=== PATIENT | male | born 1950 | race Caucasian/White ===

== ENCOUNTER 2025-02-10 09:01 | Emergency (ER) | payer MEDICARE, BC, SELFPAY ==
--- NOTE | 2025-02-10 09:03 | XR_ITS ---
Examination: Shoulder, right, 3 views Technique: Shoulder AP internal rotation, AP external rotation, Y view shoulder, 3 views Exam date and time : February 10, 2025, 0926 hours INDICATIONS: Patient fell today with injury of the shoulder, shoulder pain. FINDINGS: Moderate narrowing glenohumeral joint No shoulder fracture or dislocation IMPRESSION: No shoulder fracture or dislocation
[2025-02-10 09:11] VITALS: BP 156/84; PULSE 62; RESP 17; TEMP 36.8; O2SAT 95
[2025-02-10 09:12] VITALS: BMI 36.2
--- NOTE | 2025-02-10 09:45 | PD.EDUPEX ---
Upper Extremity Injury RME/HPI General Chief Complaint: Extremity Injury, Upper Stated Complaint: R SHOULDER PAIN Time Seen by Provider: 02/10/25 09:22 Arrival date/time: 02/10/25 09:01 Limitations: no limitations RME / HPI complaint: injury to: right and shoulder Onset (ago): week(s) Other injuries: none Handedness: right Place: home Severity: moderate RME / HPI narrative: 74-year-old male visiting from [facility] was at his house about a week ago and tripped and fell on the carpet. Striking his right shoulder. Initially did not think much of it but now that he is here in [place] cannot move it much. Will be visiting [place] for 1 month. States when he goes back he had plan to visit his Ortho which already had told him he needed some debridement of the same shoulder. Has never had surgery to that shoulder. No other injuries during the fall. States would like imaging just to make sure that nothing is broken. Able to move it but with pain. Related Data Home Medications ?Medication ?Instructions ?Recorded ?Confirmed topiramate 25 mg tablet (Topamax) 25 mg PO BID #0 tabs 07/06/16 03/03/20 escitalopram oxalate 20 mg tablet 20 mg PO HS 11/12/19 03/03/20 (Lexapro) famotidine 40 mg tablet 40 mg PO QDAY 11/12/19 03/03/20 ropinirole 0.5 mg tablet 0.5 mg PO HS 11/12/19 03/03/20 vitamin B complex-vitamin C-folic 1 tab PO QDAY 11/12/19 03/03/20 acid 0.8 mg tablet (Edita-Nora) ergocalciferol (vitamin D2) 1,250 50,000 unit PO QWEEK 11/13/19 03/03/20 mcg (50,000 unit) capsule fluticasone propionate 50 2 spray intranasal QDAY 11/13/19 02/13/21 mcg/actuation nasal spray,suspension Previous Rx's ?Medication ?Instructions ?Recorded hydrocodone 5 mg-acetaminophen 325 1 tab PO BID PRN pain 7 days #14 02/10/25 mg tablet tabs Allergies Allergy/AdvReac Type Severity Reaction Status Date / Time levofloxacin (From Levaquin) Allergy Verified 06/21/23 20:05 Review of Systems Review of Systems Systems Reviewed: All systems reviewed, normal except as documented Constitutional Constitutional: Reports as per HPI Musculoskeletal Musculoskeletal: Reports as per HPI ED Exam General Limitations: Present no limitations General appearance: Present alert and in no apparent distress Eye Eye exam: Present normal appearance, PERRL and EOMI Cardiovascular Cardiovascular exam: Present regular rate, normal rhythm and normal heart sounds Abdominal Exam Abdominal exam: Present soft and normal bowel sounds Extremities Exam Extremities exam: Present normal inspection, full ROM and tenderness (ttp right shoulder ) Back Exam Back exam: Present normal inspection and full ROM Psychiatric Psychiatric exam: Present normal affect and normal mood Skin Skin exam: Present warm, dry, intact and normal color Course Quality Measures none Orders Category Date Time Status Splint / Immobilizer STAT Care 02/10/25 10:03 Completed XR shoulder RT min 2V Stat Exams 02/10/25 09:03 Completed Dexamethasone Inj [Decadron Inj] Med 02/10/25 09:44 Discontinued 10 mg PO X1 ONE HYDROcodone*/APAP 5/325 [[place] 5/325] Med 02/10/25 09:44 Discontinued 1 tab PO X1 ONE Ketorolac Inj [Toradol Inj] Med 02/10/25 09:44 Discontinued 30 mg IM X1 ONE Vital Signs Vital signs: Vital Signs Temperature 98.2 F 02/10/25 09:11 Pulse Rate 62 02/10/25 09:11 Respiratory Rate 17 02/10/25 09:11 Blood Pressure 156/84 H 02/10/25 09:11 Pulse Oximetry (%) 95 02/10/25 09:11 Oxygen Delivery Method Room Air 02/10/25 09:11 PROCEDURES: Splint Fabrication: Pre-Fabricated Type: Other (right shoulder sling ) Reason for Splint: Pain Management Site condition: Pain Circulation Distal to Splint: Yes Movement Distal to Splint: Yes Senation Distal to Splint: Yes Tolerance: Tolerates Well Extremity Injury Patient data External records reviewed:: [facility] previous records Clinical information provided by:: patient and family Social determinants that could affect healthcare access:: other (specify) ([place] of [place] ) Patient has the following chronic illnesses:: right shoulder OA How is presenting disease/condition affected by chronic disease/condition?: exacerbated by Evaluation data The following diagnostics were reviewed and interpreted by me:: radiology exam(s) Lab and/or radiology exams considered but not ordered:: ct or mri was considered however unlikely to change course of treatment Interpretation Summary: right shoulder xray no fx, no dislocation djd noted Medications / Prescriptions Medications or Prescriptions considered but not ordered:: all meds considered were given Medication administrations:: Medication Administration History Discontinued Medications Hydrocodone Bitart/Acetaminophen (Hydrocodone/Apap 5/325 Tablet) 1 tab PO X1 ONE Stop: 02/10/25 09:45 Last Admin: 02/10/25 10:18 Dose: 1 tab Documented By: BELEN Dexamethasone Sodium Phosphate (Dexamethasone Sod Phos Inj 10 Mg/Ml Vial) 10 mg PO X1 ONE Stop: 02/10/25 09:45 Last Admin: 02/10/25 10:17 Dose: 10 mg Documented By: BELEN Comments: po per md Ketorolac Tromethamine (Ketorolac Inj 30 Mg/Ml Vial) 30 mg IM X1 ONE Stop: 02/10/25 09:45 Last Admin: 02/10/25 10:18 Dose: 30 mg Documented By: BELEN see above Consultations Consultation(s) initiated? (list below): No Diagnosis Upper Extremity Injury Differential Diagnosis: dislocation of shoulder, fracture of humerus and fracture of clavicle Most likely diagnosis given after review of the tests above:: right shoulder contusion right shoulder oa Admission Indicated Admission indicated?: not indicated Admission Request Was there a request for admission?: No Disposition Plan Disposition Plan: Discharge Discharge Attestation Discharge Attestation: The patient and all family members were given an opportunity to ask questions and understood the discharge instructions. Discharge instructions specifically effects, indications for sooner follow up or return to the emergency department, and the expected course of current diagnosis. Patient condition: Stable Discharge Plan Plan Patient Disposition: HOME (Self Care) Discharge Disposition comment: f/u 2-3days pcp Prescriptions/Referrals Prescriptions/Med Rec: New hydrocodone-acetaminophen 5-325 mg tablet 1 tab PO BID MDD 2 PRN (Reason: pain) 7 Days Qty: 14 0RF No Action topiramate [Topamax] 25 MG tablet 25 mg PO BID Qty: 0 famotidine 40 mg Tablet 40 mg PO QDAY ropinirole 0.5 mg Tablet 0.5 mg PO HS Edita-Nora 0.8 mg Tablet 1 tab PO QDAY escitalopram oxalate [Lexapro] 20 mg Tablet 20 mg PO HS ergocalciferol (vitamin D2) 1,250 mcg (50,000 unit) capsule 50,000 unit PO QWEEK fluticasone propionate 50 mcg/actuation spray,suspension 2 spray INTRANASAL QDAY Referrals: No Primary/Family,Physician [Primary Care Provider] - In 1 week Problem List Clinical Impression: Acute pain of right shoulder, Contusion of right shoulder or upper extremity Patient/Caregiver Discharge Instructions Education Materials: Medicine for Pain, The Shoulder Joint Print Language: Scottish Stand Alone Forms: [facility] Award Info., Patient Portal Info Letter PA/GEOGRAPHIC INFORMATION SCIENTIST Supervising Physician PA/GEOGRAPHIC INFORMATION SCIENTIST Supervising Physician: Dr. Carr
[2025-02-10] MEDS: DEXAMETHASONE SOD PHOS INJ 10 MG/ML VIAL PO (10:17)
[2025-02-10] MEDS: KETOROLAC INJ 30 MG/ML VIAL IM (10:18)
[2025-02-10] MEDS: HYDROcodone/APAP 5/325 TABLET 1 TAB PO (10:18)
== END 2025-02-10 10:35 | disposition home or self-care (01) ==
PROVIDERS: Emergency Provider Emergency Medicine
DX: S40.011A Contusion of right shoulder, initial encounter (principal); W01.0XXA Fall on same level from slipping, tripping and stumbling without subsequent striking against object, initial encounter
CPT/HCPCS: 73030; 96372; 99283; A4565; J1100; J1885; A9270

== ENCOUNTER 2025-03-10 05:37 | Observation (INO) | payer MEDICARE, BC, SELFPAY ==
[2025-03-10] VITALS (11 sets, daily range): BP systolic 142–167; BP diastolic 80–104; PULSE 56–66; RESP 15–97; TEMP 36.5–36.9; O2SAT 93–96; BMI 34.8
--- NOTE | 2025-03-10 | XR_ITS ---
Examination: MRI of brain without intravenous contrast. MRI brain with intravenous contrast. Date and time of exam: March 10, 2025, 10:26 a.m. INDICATIONS: Bilateral leg weakness areflexic patellar tendons, stroke alert this morning Technique: Multiple axial and sagittal images of the brain to been obtained. Siemens high-resolution 1.52 Bev short bore scanner utilized. Sagittal sections, T1 weighted images, TR 500, TE 14, are performed. Axial sections proton-density and T2-weighted images have been obtained. Inversion recovery axial images, TR 9260, TE 111, TR 2500. Diffusion weighted images, axial sections, TR 4800, TE 128, B value 1000. Axial sections, ADC map, TR 4800, TE 128. Axial and coronal images were also obtained post 5 cc gadolinium administered intravenously. Findings:: Enlargement of the sella turcica is not present. The optic chiasm and infundibular stalk are not remarkable. There is no localized enlargement of the medulla or blanka. Fourth ventricle and cerebellar tonsils appear normal in position. No subacute area of hemorrhage density is seen. Fourth ventricle is midline. Mass in the cerebellopontine angle region is not evident. 7th and 8th nerve complexes exhibit symmetry Globes are symmetrical Orbital musculature including medial lateral rectus muscles do not exhibit abnormality Increased white matter signal is prominent Effacement of the cortical sulcal markings is not identified. Mass effect upon the ventricular system is not identified. 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
--- NOTE | 2025-03-10 05:44 | PD.EDRME ---
Rapid Medical Screening Exam RME Arrival date/time: 03/10/25 05:37 Chief Complaint: Weakness Time Seen by Provider: 03/10/25 06:20 Vital signs: Vital Signs Temperature 98.1 F 03/10/25 05:41 Pulse Rate 62 03/10/25 05:41 Respiratory Rate 18 03/10/25 05:41 Blood Pressure 167/98 H 03/10/25 05:41 Pulse Oximetry (%) 94 L 03/10/25 05:41 Vital signs reviewed by provider: Yes RME Narrative: 74yo male with history of TIA characterized by disequilibrium remotely, on Plavix and ASA for previous cardiac stent BIBA from home due to his inability to assume upright position when attempting to arise from bed this AM. LKWT 0200 when the patient ambulated to the restroom without difficulty. Patient does report recent URI-like symptoms within the last week. Exam: Alert, oriented, GCS 15, BUE 5/5 motor strength, BLE 1-2/5 motor strength, noted areflexic at L4 and S1 bilaterally, preserved reflexes in the upper extremities Clinical Impression: Ascending motor weakness
--- NOTE | 2025-03-10 05:50 | XR_ITS ---
EXAMINATION: AP chest single view TECHNIQUE: AP portable upright chest single view Date and time: March 10, 2025, 0612 hours, comparison June 21, 2023 INDICATIONS: Stroke protocol, shortness of breath today FINDINGS: Mild enlargement cardiac contour. No aspiration pneumonia. No pulmonary edema. Moderate osteopenia IMPRESSION: No aspiration pneumonia
--- NOTE | 2025-03-10 05:50 | EKG_ITS ---
[facility] Test Date: 2025-03-10 Pat Name: MADONNA LOPEZ Department: Room: - Gender: Male Senior Linux Administrator: : 1950 Requested By: Jose Vee Order Number: [id number] Reading MD: Jose Vee Measurements Intervals [place] Rate: 57 P: 48 CO: 182 QRS: 24 QRSD: 81 T: 63 QT: 435 QTc: 427 Interpretive Statements SINUS BRADYCARDIA LOW QRS VOLTAGE IN PRECORDIAL LEADS [QRS DEFLECTION < 1.0 mV IN CHEST LEADS] SEPTAL MYOCARDIAL INFARCTION , OF INDETERMINATE AGE [40+ ms Q WAVE IN V1/V2] Compared to ECG 08/17/2022 07:52:36 Low QRS voltage now present Myocardial infarct finding now present Sinus rhythm no longer present T-wave abnormality no longer present /store/S0/[id number].pdf
--- NOTE | 2025-03-10 05:54 | XR_ITS ---
Examination: CT lumbar spine, without contrast. 2-D sagittal reconstructions. 2-D coronal reconstructions. 3-D reconstructions. Date and time of exam: March 10, 2025, 0715 hours INDICATIONS: Back pain lower extremity weakness beginning this morning CTDI: vol (mGy): 96.2 DLP: (mGycm): 3992 Technique: Multiple 1.25 mm axial sections of the lumbar spine without intravenous contrast have been obtained. 2-D sagittal and coronal reconstructions have been obtained. 3-D reconstructions have been obtained. Low dose protocols were performed. One or more of the following dose reduction techniques were used; automated exposure control, adjustment of the mA and/or KV according to patient size, use of iterative reconstruction technique. Findings: Severe osteopenia Transpedicular lumbar stabilization L4-S1 Grade 1 anterolisthesis L5 on S1 with disc spacer Laminectomy L5 L5-S1 grade 1 anterolisthesis produces severe right L5 ganglionic compression, L4-L5 2 mm central lumbar disc bulge L3-L4 no disc protrusion L2-L3 no disc protrusion L1-2 no disc protrusion IMPRESSION: Transpedicular lumbar stabilization L4-S1 L5-S1 grade 1 anterolisthesis produces severe right L5 ganglionic compression which could produce significant leg weakness
[2025-03-10 06:34] LABS: Collection Type, Urine Clean Catch
[2025-03-10] MEDS: SODIUM CHLORIDE 0.9% 1000 ML 1,000 ML 100 ML IV ×2 (06:40→18:59)
[2025-03-10 06:46] LABS: INR 1.0 (0.9-1.3); Partial Thromboplastin Time 20.9 Seconds (22.0-36.0); Prothrombin Time 10.8 Seconds (9.0-12.2)
[2025-03-10 06:48] LABS: Bilirubin,Urine Negative (Negative); Blood,Urine Negative (Negative); Clarity,Urine Clear (Clear/Hazy); Color,Urine Lt-Yellow (Lt Yel-Yel); Culture Indicated,Urine Not Indicated; Glucose, Urine Negative (Negative); Ketones,Urine Negative (Negative); Leukocyte Esterase,Urine Negative (Negative); Nitrite,Urine Negative (Negative); PH,Urine 7.0 (5.0-7.0); Protein,Urine Negative (Neg - Trace); RBC,Urine 5 /hpf (0-3); Specific Gravity,Urine 1.020 (1.001-1.035); Squamous Epithelial Cell,Urine < 1 /hpf (0-5); Urobilinogen,Urine Negative mg/dL (0.0-1.0); WBC,Urine 1 /hpf (0-5)
--- NOTE | 2025-03-10 06:52 | XR_ITS ---
Examination: CT brain head without contrast. 2-D sagittal coronal reconstructions Date and time of exam: March 10, 2025, 0709 hours, comparison November 12, 2019 INDICATIONS: Stroke alert, onset of bilateral lower extremity weakness beginning this morning CTDI: vol (mGy): 53.5 DLP: (mGycm): 1097 Technique: Multiple CT axial sections of the brain have been obtained, 5 mm slice thickness. Contrast has not been administered. 2-D sagittal, coronal reconstructions have been obtained Low dose protocols were performed. One or more of the following dose reduction techniques were used; automated exposure control, adjustment of the mA and/or KV according to patient size, use of iterative reconstruction technique. Findings: No significant ventricular enlargement. Unchanged old infarct in the left basal ganglia and old infarcts in right and left cerebellar hemispheres Intra-axial or extra-axial hemorrhage density is not seen. No mass effect or midline shift Basal cisterns are not remarkable. Fourth ventricle is midline. Cranial vault intact. Impression: Negative for acute hemorrhage, mass effect or midline shift
--- NOTE | 2025-03-10 06:52 | XR_ITS ---
Examination: CTA carotids with intravenous contrast CTA brain, head with intravenous contrast. 2-D sagittal, coronal reconstructions. 3-D reconstructions. Exam date and time: March 10, 2025, 0711 hours INDICATIONS: Onset stroke alert, focal neurologic deficit this morning CTDI: vol (mGy) 16.8 DLP: (mGycm) 557 Technique: Multiple CTA axial brain, head carotid images post intravenous contrast injection [id number] 2D sagittal coronal reconstructions 3D reconstructions 3D postprocessing vascular maximum intensity projection images Low dose protocols Automated exposure control, adjustment MA KV according to patient size FINDINGS: No significant common carotid carotid bifurcation or internal carotid artery stenoses Significantly smaller left vertebral artery no occlusions of the vertebral arteries in the neck Intracranial vertebral arteries basilar artery and posterior cerebral branches fill with no large vessel occlusions Petrous, juxtasellar supraclinoid portions internal carotid arteries intact M1 segments middle cerebral arteries middle cerebral artery trifurcation vessels and anterior cerebral arteries fill with no large vessel occlusions. IMPRESSION: No significant neck arterial stenoses No cerebral large vessel arterial occlusions or thrombus
--- NOTE | 2025-03-10 06:59 | XR_ITS ---
Examination: CT abdomen with intravenous contrast CT pelvis with intravenous contrast 2-D coronal reconstructions 2-D sagittal reconstructions Date and time of exam: March 10, 2025, 0713 hours, comparison August 17, 2022 INDICATIONS: Weakness in the lower extremities unable to flex the hip joints this week. CTDI: vol (mGy) 27.1 DLP: (mGycm) 1686 Technique: Multiple axial sections of the abdomen and pelvis have been obtained. 64 slice high-resolution scanner used. 3 mm axial sections have been obtained, post intravenous injection 60 cc Isovue-370 2D sagittal coronal reconstructions Low dose protocols, automated exposure control, adjustment of MA KV according to patient size FINDINGS: No focal liver or splenic lesions Absent gallbladder No extrahepatic biliary tract dilatation Axial image 71 suspicious for mild edema about the head of the pancreas No adrenal mass No hydronephrosis Mild renal parenchymal scar formation Abdominal aorta is normal in size Normal appendix No bowel obstruction Scattered colonic diverticulosis especially sigmoid colon no diverticulitis Penile balloon pump Contracted urinary bladder with marked urinary bladder wall thickening Normal seminal vesicles No significant prostate tissue Prominent osteopenia Transpedicular lumbar stabilization L4-S1, grade 1 anterolisthesis L5 on S1, disc spacer L5-S1 Moderate bilateral hip osteoarthritis IMPRESSION: Suspicious for mild edema about the head of the pancreas, clinical correlation advised No hydronephrosis Normal appendix No bowel obstruction Colonic diverticulosis, no diverticulitis Transpedicular lumbar stabilization L4-S1, grade 1 anterolisthesis L5 on S1 Moderate bilateral hip osteoarthritis
--- NOTE | 2025-03-10 07:01 | PD.EDWEAK ---
ED Weakness RME/HPI General Chief complaint: Weakness Stated complaint: WEAKNESS Time Seen by Provider: 03/10/25 06:20 Arrival date/time: 03/10/25 05:37 Limitations: no limitations RME / HPI RME / HPI Narrative: DR. 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 Patient states that at 2 AM he got up and use the restroom. He states that he was ambulating normally and felt no weakness. When he awoke at 5 AM he was unable to lift his legs off the bed. When he sat up with the help of his he states that he slumped over to the right each time. Patient is unable to describe his symptoms in much detail other did not say I cannot get up . In time he stated he has no pain, no recent weight loss, no recent illnesses such as flulike symptoms and/or vomiting and diarrhea, no recent new medications started, no chemotherapy medications. Patient states he has never felt similar symptoms to this before. He states his right leg is worse than his left. Patient has a history of what sounds like vertigo and balance problems. 6 weeks ago he had an MRI of the brain that basically showed old strokes including cerebellar strokes but no new symptoms. He got that MRI but due to his ongoing episodic vertigo issues. Patient states he has no numbness or tingling. He has no symptoms above the waist whatsoever including weakness or tingling or numbness. No recent trauma. Related Data Home Medications ?Medication ?Instructions ?Recorded ?Confirmed topiramate 25 mg tablet (Topamax) 25 mg PO BID #0 tabs 07/06/16 03/03/20 escitalopram oxalate 20 mg tablet 20 mg PO HS 11/12/19 03/10/25 (Lexapro) famotidine 40 mg tablet 40 mg PO QDAY 11/12/19 03/10/25 ropinirole 0.5 mg tablet 0.5 mg PO HS 11/12/19 03/03/20 vitamin B complex-vitamin C-folic 1 tab PO QDAY 11/12/19 03/10/25 acid 0.8 mg tablet (Edita-Nora) ergocalciferol (vitamin D2) 1,250 50,000 unit PO QWEEK 11/13/19 03/03/20 mcg (50,000 unit) capsule fluticasone propionate 50 2 spray intranasal QDAY 11/13/19 03/10/25 mcg/actuation nasal spray,suspension aspirin 81 mg tablet,delayed 81 mg PO QDAY 03/10/25 03/10/25 release azelastine 137 mcg (0.1 %) nasal 2 spray intranasal QDAY 03/10/25 03/10/25 spray clopidogrel 75 mg tablet 75 mg PO QDAY 03/10/25 03/10/25 levocetirizine 5 mg tablet 5 mg PO QDAY 03/10/25 03/10/25 montelukast 10 mg tablet 10 mg PO QDAY 03/10/25 03/10/25 omeprazole 40 mg capsule,delayed 40 mg PO QDAY 03/10/25 03/10/25 release rosuvastatin 20 mg tablet 20 mg PO .QHS 03/10/25 03/10/25 topiramate 50 mg tablet 50 mg PO Q12H 03/10/25 03/10/25 Allergies Allergy/AdvReac Type Severity Reaction Status Date / Time levofloxacin (From Levaquin) Allergy Verified 03/10/25 05:49 Review of Systems Review of Systems Systems Reviewed: All systems reviewed, normal except as documented Past Medical History Past Medical History NEUROLOGIC: Positive Neurological Disorders and Transient Ischemic Attacks (TIA) CARDIAC: Positive Hypertension GASTROINTESTINAL: Positive Gastrointestinal Disorders and Hiatal Hernia GENITOURINARY: Positive Benign Prostatic Hyperplasia Family History FAMILY HISTORY: Positive Family Respiratory Disorders and Family Cancer Social History SMOKING STATUS: Never smoker SUBSTANCE USE: does not use ALCOHOL: Never ED Exam General Limitations: Present no limitations General appearance: Present alert and in no apparent distress Head Head exam: Present atraumatic, normocephalic and normal inspection Eye Eye exam: Present normal appearance, PERRL and EOMI ENT ENT exam: Present normal exam, normal oropharynx and mucous membranes moist Neck Neck exam: Present normal inspection, full ROM and trachea midline Chest Chest inspection: Present normal inspection and symmetric chest wall rise Respiratory Respiratory exam: Present normal lung sounds bilaterally Cardiovascular Cardiovascular exam: Present regular rate, normal rhythm and normal heart sounds Abdominal Exam Abdominal exam: Present soft and normal bowel sounds Extremities Exam Extremities exam: Present normal inspection and full ROM Back Exam Back exam: Present normal inspection and full ROM Neurological Exam Neurological exam: Present alert, oriented X3 and CN II-XII intact Expanded Neurological Exam Other motor function: Upper extremities 5/5 strength with normal sensation and no drift. Lower extremities with decreased strength bilaterally, right worse than left. Patient able to flex knees with difficulty. Able to lift bilateral legs off bed briefly only. Sensation decreased bilaterally in lower extremities, markedly reduced on the right. Patellar reflexes absent bilaterally. No nystagmus, dysmetria, dysdiadochokinesia, intention tremor, or speech difficulty. Psychiatric Psychiatric exam: Present normal affect and normal mood Skin Skin exam: Present warm, dry, intact and normal color Course Quality Measures none Orders Category Date Time Status Bedside Blood Glucose NOW Care 03/10/25 05:50 Active Bedside COVID-19 Antigen Test NOW Care 03/10/25 06:21 Active Bedside Influenza A&B Antigen Test NOW Care 03/10/25 06:21 Completed COVID-19 Screening Questionnaire NOW Care 03/10/25 12:[address] Screening NOW Care 03/10/25 05:[address] Screening NOW Care 03/10/25 07:00 Completed Tax Associate NOW Care 03/10/25 05:50 Active Continuous Pulse Oximetry NOW Care 03/10/25 05:50 Completed Continuous Pulse Oximetry NOW Care 03/10/25 06:52 Completed Decision to Admit X1 Care 03/10/25 12:50 Completed EKG (ED ONLY) *Do not use* NOW Care 03/10/25 05:50 Completed Cruz [Urinary Catheter] QS Care 03/10/25 06:09 Active In and Out Catheter NEEDED Care 03/10/25 05:50 Active Insert IV NOW Care 03/10/25 05:50 Active MRI Screening NOW Care 03/10/25 07:43 Active NIH Stroke Scale now Care 03/10/25 05:50 Active NPO NOW Care 03/10/25 05:50 Completed NPO NOW Care 03/10/25 06:52 Active Neuro Check Q1HR Care 03/10/25 05:50 Completed Neuro Check Q30MIN Care 03/10/25 06:53 Active Nurse Swallow Screen x1 Care 03/10/25 05:50 Active Consult to Neurology / Tele-Neurology Routine Cons 03/10/25 06:[address] abdomen pelvis w con Stat Exams 03/10/25 06:[address] angio stroke protocol Stat Exams 03/10/25 06:[address] lumbar spine wo con Stat Exams 03/10/25 05:[address] stroke protocol Stat Exams 03/10/25 06:52 Completed EKG (ED Only) Stat Exams 03/10/25 05:50 Draft MR head/brain wo/w con Stat Exams 03/10/25 Completed XR chest 1V portable Stat Exams 03/10/25 05:50 Completed Alcohol, Blood Medical Stat Lab 03/10/25 07:01 Completed B-Type Natriuretic Peptide Stat Lab 03/10/25 07:01 Completed CBC Stat Lab 03/10/25 07:01 Completed CRP [C-Reactive Protein] Stat Lab 03/10/25 06:04 Completed Comprehensive Metabolic Panel Stat Lab 03/10/25 06:04 Completed Drug Screen,Urine Stat Lab 03/10/25 06:04 Completed ESR [Sed Rate (ESR)] Stat Lab 03/10/25 06:04 Completed Free T4 (Free Thyroxine) Stat Lab 03/10/25 06:04 Completed Lipid Panel Stat Lab 03/10/25 07:01 Completed Magnesium Stat Lab 03/10/25 06:04 Completed Magnesium Stat Lab 03/10/25 07:01 Completed Partial Thromboplastin Time Stat Lab 03/10/25 06:04 Completed Prothrombin Time with INR Stat Lab 03/10/25 06:04 Completed Thyroid Stimulating Hormone Stat Lab 03/10/25 06:04 Completed Troponin I Stat Lab 03/10/25 06:04 Completed Troponin I Stat Lab 03/10/25 07:01 Completed Urinalysis, C/S if Indicated Stat Lab 03/10/25 05:59 Completed Aspirin Med 03/10/25 07:43 Discontinued 325 mg PO X1 ONE Clopidogrel [Plavix] Med 03/10/25 07:43 Discontinued 300 mg PO X1 ONE Sodium Chloride 0.9% 1000 ml [Ns] 1,000 ml Med 03/10/25 06:00 Active IV Q10H Oxygen Delivery NOW RT 03/10/25 05:50 Active Vital Signs Vital signs: Vital Signs Temperature 98.1 F 03/10/25 05:41 Pulse Rate 62 03/10/25 05:41 Respiratory Rate 18 03/10/25 05:41 Blood Pressure 167/98 H 03/10/25 05:41 Pulse Oximetry (%) 94 L 03/10/25 05:41 Weakness MDM Narrative MDM Narrative:: 74-year-old male with acute onset bilateral lower extremity weakness, right greater than left, with sensory loss and areflexia. Stroke alert activated on arrival. Given prior CVA history and acute neurologic changes, full stroke workup initiated and teleneurology consulted. Differential diagnoses include acute CVA, spinal cord pathology, and acute neurologic syndrome. When I arrived I called a stroke alert. This was not done prior. There is a CT of the lumbar spine ordered as well. Stroke workup and protocol will be followed. Teleneurologist to see patient. 8:01 a.m. I spoke with the teleneurologist She suggests that the right leg is much worse than the left and apparently she got a better exam. She said we should give Plavix and aspirin, order MRI of the brain. She said the patient is outside the window for thrombolytics. Tests have resulted: CBC is basically normal, INR is 1.0, mildly elevated sodium and chloride, creatinine is 1.4 which is not new for him, blood sugars 114, anion gap is 11, normal calcium and magnesium, LFTs are basically normal, troponins are negative, inflammatory markers are negative thyroid function tests are basically normal. Patient's urinalysis shows 5 red cells but otherwise normal, urine drug screen is negative, alcohol is negative. CT of the Noncon CT head and the head neck CTA basically showed no abnormalities. CT abdomen pelvis showed no obvious mass and no obvious cause of patient's symptoms, lumbar CT showed patient with had lumbar fixation from L4-S1. L5/S1 with grade 1 anterior listhesis producing severe right L5 ganglionic compression Plan: Proceed with the MR, every 30 minute neurochecks in case of ascending paralysis, neurosurgical consultation. 8:[address] Wisdom. She said to proceed with the MRI brain wo contrast, and admission either way. Will do. 9:07 AM went back to reassess the patient and his symptoms have completely resolved. He is able to lift both legs equally and completely from the bed, his sensation is intact, equal and normal bilaterally. He is able to sit up without falling over. Patient states he was just sitting there and then suddenly his sensation returned and he was able to move. We are going to go ahead and proceed with the MR 9:41 AM patient may end up needing MRI with and without of the thoracolumbar spine, also perhaps aortic angiogram to rule out dissection. Very unlikely the dissection would come and go like that without any pain but possible. Spinal TIA is a consideration. Will continue with workup and reassess while okay. 1225 PM Discussed test HPI, PMHx, lab, radiology results and/or management with Dr. Wisdom. Will consult an admission to the hospitalist. 1230: Discussed test HPI, PMHx, lab, radiology results and/or management with the hospitalist team B. Will admit for further evaluation and management. Accepts patient for admission. Geeta Sen, am scribing for and in the presence of Dr. Villalobos. Patient data External records reviewed:: [facility] previous records and EMS form Clinical information provided by:: patient and EMS Social determinants that could affect healthcare access:: none Patient has the following chronic illnesses:: -PMH: chronic back pain, depression, prostate problems, cardiac arrhythmias including PACs and bradycardia in the past, TIA, HTN, hiatal hernia -PSH: diagnostic left heart catheterization, selective coronary angiogram, left ventricular angiogram; PCI, PTCA stent placement, mid left anterior descending artery by Dr. Castellanos on 02/18/21 -Social hx: He is a nonsmoker, nondrinker. No substance use. How is presenting disease/condition affected by chronic disease/condition?: exacerbated by Evaluation data The following diagnostics were reviewed and interpreted by me:: lab results, radiology exam(s) and EKG tracing(s) (My interpretation: EKG performed at 0621 hours, normal sinus rhythm, rate 65, normal axis, no ectopy, no signs of acute ischemia, no STEMI) Lab and/or radiology exams considered but not ordered:: none Interpretation Summary: See MDM narrative above. RADIOLOGY Procedure(s): CT abdomen pelvis w con Accession Number(s): [id number] cc: Elbert Ramirez MD; Antoine Villalobos MD; Kavin Courtney MD~ Examination: CT abdomen with intravenous contrast CT pelvis with intravenous contrast 2-D coronal reconstructions 2-D sagittal reconstructions Date and time of exam: March 10, 2025, 0713 hours, comparison August 17, 2022 INDICATIONS: Weakness in the lower extremities unable to flex the hip joints this week. CTDI: vol (mGy) 27.1 DLP: (mGycm) 1686 Technique: Multiple axial sections of the abdomen and pelvis have been obtained. 64 slice high-resolution scanner used. 3 mm axial sections have been obtained, post intravenous injection 60 cc Isovue-370 2D sagittal coronal reconstructions Low dose protocols, automated exposure control, adjustment of MA KV according to patient size FINDINGS: No focal liver or splenic lesions Absent gallbladder No extrahepatic biliary tract dilatation Axial image 71 suspicious for mild edema about the head of the pancreas No adrenal mass No hydronephrosis Mild renal parenchymal scar formation Abdominal aorta is normal in size Normal appendix No bowel obstruction Scattered colonic diverticulosis especially sigmoid colon no diverticulitis Penile balloon pump Contracted urinary bladder with marked urinary bladder wall thickening Normal seminal vesicles No significant prostate tissue Prominent osteopenia Transpedicular lumbar stabilization L4-S1, grade 1 anterolisthesis L5 on S1, disc spacer L5-S1 Moderate bilateral hip osteoarthritis IMPRESSION: Suspicious for mild edema about the head of the pancreas, clinical correlation advised No hydronephrosis Normal appendix No bowel obstruction Colonic diverticulosis, no diverticulitis Transpedicular lumbar stabilization L4-S1, grade 1 anterolisthesis L5 on S1 Moderate bilateral hip osteoarthritis Dictated By: Elbert Ramirez MD Procedure(s): CT angio stroke protocol Accession Number(s): [id number] cc: Elbert Ramirez MD; Antoine Villalobos MD; Kavin Courtney MD~ Examination: CTA carotids with intravenous contrast CTA brain, head with intravenous contrast. 2-D sagittal, coronal reconstructions. 3-D reconstructions. Exam date and time: March 10, 2025, 0711 hours INDICATIONS: Onset stroke alert, focal neurologic deficit this morning CTDI: vol (mGy) 16.8 DLP: (mGycm) 557 Technique: Multiple CTA axial brain, head carotid images post intravenous contrast injection [id number] 2D sagittal coronal reconstructions 3D reconstructions 3D postprocessing vascular maximum intensity projection images Low dose protocols Automated exposure control, adjustment MA KV according to patient size FINDINGS: No significant common carotid carotid bifurcation or internal carotid artery stenoses Significantly smaller left vertebral artery no occlusions of the vertebral arteries in the neck Intracranial vertebral arteries basilar artery and posterior cerebral branches fill with no large vessel occlusions Petrous, juxtasellar supraclinoid portions internal carotid arteries intact M1 segments middle cerebral arteries middle cerebral artery trifurcation vessels and anterior cerebral arteries fill with no large vessel occlusions. IMPRESSION: No significant neck arterial stenoses No cerebral large vessel arterial occlusions or thrombus Dictated By: Elbert Ramirez MD Procedure(s): CT stroke protocol Accession Number(s): [id number] cc: Elbert Ramirez MD; Antoine Villalobos MD; Kavin Courtney MD~ Examination: CT brain head without contrast. 2-D sagittal coronal reconstructions Date and time of exam: March 10, 2025, 0709 hours, comparison November 12, 2019 INDICATIONS: Stroke alert, onset of bilateral lower extremity weakness beginning this morning CTDI: vol (mGy): 53.5 DLP: (mGycm): 1097 Technique: Multiple CT axial sections of the brain have been obtained, 5 mm slice thickness. Contrast has not been administered. 2-D sagittal, coronal reconstructions have been obtained Low dose protocols were performed. One or more of the following dose reduction techniques were used; automated exposure control, adjustment of the mA and/or KV according to patient size, use of iterative reconstruction technique. Findings: No significant ventricular enlargement. Unchanged old infarct in the left basal ganglia and old infarcts in right and left cerebellar hemispheres Intra-axial or extra-axial hemorrhage density is not seen. No mass effect or midline shift Basal cisterns are not remarkable. Fourth ventricle is midline. Cranial vault intact. Impression: Negative for acute hemorrhage, mass effect or midline shift Dictated By: Elbert Ramirez MD Procedure(s): CT lumbar spine wo con Accession Number(s): [id number] cc: Jose Carter DO; Elbert Ramirez MD; Kavin Courtney MD~ Examination: CT lumbar spine, without contrast. 2-D sagittal reconstructions. 2-D coronal reconstructions. 3-D reconstructions. Date and time of exam: March 10, 2025, 0715 hours INDICATIONS: Back pain lower extremity weakness beginning this morning CTDI: vol (mGy): 96.2 DLP: (mGycm): 3992 Technique: Multiple 1.25 mm axial sections of the lumbar spine without intravenous contrast have been obtained. 2-D sagittal and coronal reconstructions have been obtained. 3-D reconstructions have been obtained. Low dose protocols were performed. One or more of the following dose reduction techniques were used; automated exposure control, adjustment of the mA and/or KV according to patient size, use of iterative reconstruction technique. Findings: Severe osteopenia Transpedicular lumbar stabilization L4-S1 Grade 1 anterolisthesis L5 on S1 with disc spacer Laminectomy L5 L5-S1 grade 1 anterolisthesis produces severe right L5 ganglionic compression, L4-L5 2 mm central lumbar disc bulge L3-L4 no disc protrusion L2-L3 no disc protrusion L1-2 no disc protrusion IMPRESSION: Transpedicular lumbar stabilization L4-S1 L5-S1 grade 1 anterolisthesis produces severe right L5 ganglionic compression which could produce significant leg weakness Dictated By: Elbert Ramirez MD Procedure(s): XR chest 1V portable Accession Number(s): [id number] cc: Jose Carter DO; Elbert Ramirez MD; Kavin Courtney MD~ EXAMINATION: AP chest single view TECHNIQUE: AP portable upright chest single view Date and time: March 10, 2025, 0612 hours, comparison June 21, 2023 INDICATIONS: Stroke protocol, shortness of breath today FINDINGS: Mild enlargement cardiac contour. No aspiration pneumonia. No pulmonary edema. Moderate osteopenia IMPRESSION: No aspiration pneumonia Dictated By: Elbert Ramirez MD Procedure(s): MR head/brain wo/w con Accession Number(s): [id number] cc: Elbert Ramirez MD; Antoine Villalobos MD; Kavin Courtney MD~ Examination: MRI of brain without intravenous contrast. MRI brain with intravenous contrast. Date and time of exam: March 10, 2025, 10:26 a.m. INDICATIONS: Bilateral leg weakness areflexic patellar tendons, stroke alert this morning Technique: Multiple axial and sagittal images of the brain to been obtained. Siemens high-resolution 1.52 Bev short bore scanner utilized. Sagittal sections, T1 weighted images, TR 500, TE 14, are performed. Axial sections proton-density and T2-weighted images have been obtained. Inversion recovery axial images, TR 9260, TE 111, TR 2500. Diffusion weighted images, axial sections, TR 4800, TE 128, B value 1000. Axial sections, ADC map, TR 4800, TE 128. Axial and coronal images were also obtained post 5 cc gadolinium administered intravenously. Findings:: Enlargement of the sella turcica is not present. The optic chiasm and infundibular stalk are not remarkable. There is no localized enlargement of the medulla or blanka. Fourth ventricle and cerebellar tonsils appear normal in position. No subacute area of hemorrhage density is seen. Fourth ventricle is midline. Mass in the cerebellopontine angle region is not evident. 7th and 8th nerve complexes exhibit symmetry Globes are symmetrical Orbital musculature including medial lateral rectus muscles do not exhibit abnormality Increased white matter signal is prominent Effacement of the cortical sulcal markings is not identified. Mass effect upon the ventricular system is not identified. 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 Dictated By: Elbert Ramirez MD Medications / Prescriptions Medications or Prescriptions considered but not ordered:: none Medication administrations:: Medication Administration History Acetaminophen (Acetaminophen 325 Mg Tablet) 650 mg PO Q6H PRN PRN Reason: Fever >101.5 Stop: 04/09/25 13:24 Aspirin (Aspirin Ec 81 Mg Tabec) 81 mg PO QDAY [facility] Stop: 04/10/25 08:59 Atorvastatin Calcium (Atorvastatin Calcium 20 Mg Tablet) 80 mg PO HS [facility] Stop: 04/09/25 20:59 Clopidogrel Bisulfate (Clopidogrel Bisulfate 75 Mg Tablet) 75 mg PO QDAY [facility] Stop: 04/10/25 08:59 Escitalopram Oxalate (Escitalopram Oxalate 10 Mg Tablet) 20 mg PO HS [facility] Stop: 04/09/25 20:59 Heparin Sodium (Porcine) (Heparin Sod Inj 5000 Unit/Ml Vial) 5,000 unit SC Q8HR [facility] Stop: 03/24/25 13:59 Last Admin: 03/10/25 14:40 Dose: 5,000 unit Documented By: Co-signed By: BELEN Sodium Chloride (Ns) 1,000 mls @ 100 mls/hr IV Q10H [facility] Stop: 03/11/25 01:59 Last Admin: 03/10/25 06:40 Dose: 100 mls/hr Documented By: NATI Ondansetron HCl (Ondansetron Inj 2 Mg/Ml Inj 2 Ml) 4 mg IVP Q6H PRN; Protocol PRN Reason: NAUSEA OR VOMITING Stop: 04/09/25 13:24 Pantoprazole Sodium (Pantoprazole 40 Mg Tablet) 40 mg PO QDAY [facility] Stop: 04/10/25 08:59 Topiramate (Topiramate 25 Mg Tablet) 50 mg PO Q12HR [facility] Stop: 04/09/25 14:44 Last Admin: 03/10/25 15:18 Dose: 50 mg Documented By: Discontinued Medications Aspirin (Aspirin 325 Mg Tablet) 325 mg PO X1 ONE Stop: 03/10/25 07:44 Last Admin: 03/10/25 07:57 Dose: 325 mg Documented By: Clopidogrel Bisulfate (Clopidogrel Bisulfate 75 Mg Tablet) 300 mg PO X1 ONE Stop: 03/10/25 07:44 Last Admin: 03/10/25 07:57 Dose: 300 mg Documented By: DO see above Consultations Consultation(s) initiated? (list below): Yes Consultation #1 (Physician, Specialty, Details): See MDM narrative above. Diagnosis Weakness Differential Diagnosis: other (acute CVA, spinal cord pathology, and acute neurologic syndrome) Most likely diagnosis given after review of the tests above:: Spinal TIA Admission Indicated Admission indicated?: indicated Admission Request Was there a request for admission?: Yes Admission Attestation Admission request attestation: Discussed case with [] from Hospitalist service regarding admission. Discussed patients ED course, exam findings, labs, and radiology results. The Hospitalist [agrees,declines] to accept the patient for admission. Disposition Plan Disposition Plan: Admit Critical Care Time Critical Care Time Critical Care Time: Yes Total Critical Care Time (min.): 45 Attestation: The high probability of sudden, clinically significant deterioration in the patient?s condition required the highest level of my preparedness to intervene urgently. The services I provided to this patient were to treat and/or prevent clinically significant deterioration. Services included the following: chart data review, reviewing nursing notes and/or old charts, documentation time, [employer] consultant collaboration regarding findings and treatment options, medication orders and management, direct patient care, vital sign assessments and ordering, interpreting and reviewing diagnostic studies and lab tests. Aggregate critical care time includes only time during which I was engaged in work directly related to the patient?s care, as described above, whether at bedside or elsewhere in the Emergency Department. It did not include time spent performing other reported procedures or the services of residents, students, nurses or physician assistants. Discharge Plan Plan Patient Disposition: Admit Acute Care w/in Hospital Problem List Clinical Impression: TIA (transient ischemic attack) Impression comment: Spinal TIA
--- NOTE | 2025-03-10 07:10 | PC.NURSE ---
Report received from pm nurse. Patient currently in CT for Stroke alert. Patient to er with c/o gino. lower ext. weakness, right leg >left leg. Alert and oriented x 3. Patient states he went to bed at 2am and was feeling normal and when he woke up at approx. 0430 this am, he was unable to get out of bed do to severe weakness to gino. lower ext. Dr. Alcaraz, teleneurologist evaluating patient and states no TNKase to be given at this time.
[2025-03-10 07:16] LABS: Basophils # (Auto) 0.1 Thou/mm3 (0.0-0.2); Basophils % (Auto) 1 % (0-2.5); Eosinophils # (Auto) 0.6 Thou/mm3 (0.0-0.5); Eosinophils % (Auto) 7 % (0-10); Hematocrit 46.2 % (41.0-53.0); Hemoglobin 15.5 g/dL (13.5-16.0); Immature Granulocytes Auto 0.04 Thou/mm3 (0.00-0.00); Lymphocytes # (Auto) 2.1 Thou/mm3 (1.0-4.8); Lymphocytes % (Auto) 27 % (10-50); Mean Corpuscular HGB Conc 33.5 g/dl (31.0-37.0); Mean Corpuscular Hemoglobin 31.7 pg (25.0-35.0); Mean Corpuscular Volume 95 fL (80-100); Monocytes # (Auto) 0.9 Thou/mm3 (0.0-0.8); Monocytes % (Auto) 12 % (0-12); Neutrophils # (Auto) 4.1 Thou/mm3 (1.8-7.7); Neutrophils % (Auto) 53 % (37-80); Nucleated Red Blood Cell # 0.00 Thou/mm3 (0.00-0.00); Nucleated Red Blood Cell % 0 /100 WBC (0); Platelet Count 175 Thou/mm3 (140-440); RDW Standard Deviation 44.4 fL (35.1-43.9); Red Blood Count 4.89 Miln/mm3 (4.50-5.90); White Blood Count 7.7 Thou/mm3 (3.8-10.6)
[2025-03-10 07:18] LABS: Sed Rate (ESR) 7 mm/hr (0-20)
[2025-03-10 07:26] LABS: Alanine Aminotransferase 37 U/L (10-49); Albumin, Serum 4.0 gm/dL (3.4-4.8); Albumin/Globulin Ratio 1.7 (1.2-2.2); Alkaline Phosphatase 111 U/L (46-116); Anion Gap 11 (7-16); Aspartate Amino Transferase 43 U/L (0-34); BUN/Creatinine Ratio 11 Ratio (12-20); Bilirubin,Total 0.6 mg/dL (0.3-1.2); Blood Urea Nitrogen 15 mg/dL (9-23); C-Reactive Protein < 0.5 mg/dL (0.0-0.9); Calcium 8.6 mg/dL (8.3-10.6); Calcium (Corrected) 8.6 mg/dL (8.5-10.1); Carbon Dioxide 26.5 mMol/L (20.0-31.0); Chloride 109 mMol/L (98-107); Creatinine (Component) 1.4 mg/dL (0.6-1.3); Estimated Creatinine Clearance 60.2 mL/min (>60); Free T4 (Free Thyroxine) 0.75 ng/dL (0.89-1.76); Globulin 2.4 gm/dL (2.3-3.5); Glucose 114 mg/dL (74-106); Magnesium 1.8 mg/dL (1.6-2.6); Osmolality,Calculated 292 (275-295); Potassium 4.3 mMol/L (3.4-5.1); Sodium 146 mMol/L (136-145); Thyroid Stimulating Hormone 1.67 uIU/mL (0.55-4.78); Total Protein 6.4 gm/dL (5.7-8.2); Troponin I < 0.020 ng/mL (0.0-0.045); eGFR 53 See Note
[2025-03-10 07:38] LABS: Amphetamine/Methamp Scrn,U Negative (Negative); Barbiturate Screen,Urine Negative (Negative); Benzodiazepines Screen,Urine Negative (Negative); Benzoylecgonine Screen, Ur Negative (Negative); Fentanyl Screen,Urine Negative (Negative); Opiate Screen,Urine Negative (Negative); THC Screen,Urine Negative (Negative)
[2025-03-10 07:55] LABS: Alcohol, Blood Medical < 3.0 mg/dL (0-10.0); Magnesium 1.8 mg/dL (1.6-2.6); Troponin I < 0.020 ng/mL (0.0-0.045)
[2025-03-10 07:57] LABS: B-Type Natriuretic Peptide < 20 pg/mL (0-100)
[2025-03-10] MEDS: CLOPIDOGREL BISULFATE 75 MG TABLET 300 MG PO (07:57)
--- NOTE | 2025-03-10 08:28 | PD.TNEURO ---
Tele Neuro Consultation Consultation Date 03/10/25 Most Recent Vital Signs Last Vital Signs Temp 98.3 F 03/10/25 05:50 Pulse 56 L 03/10/25 07:32 Resp 18 03/10/25 07:32 BP 160/86 H 03/10/25 07:32 Pulse Ox 96 03/10/25 07:32 O2 Del Method Room Air 03/10/25 07:32 Laboratory-Coagulation Panel PT 10.8 Seconds (9.0-12.2) 03/10/25 06:04 INR 1.0 (0.9-1.3) 03/10/25 06:04 APTT 20.9 Seconds (22.0-36.0) L 03/10/25 06:04 Consultation Narrative [facility] TeleNeurology Consult Services Patient Name:???Laly Esqueda Date of :???1950 Identification Number:??? Date of Service:???03/10/2025 06:54:25 Diagnosis:?R53.1 - Weakness Impression: ?74 yo RH M with h/o CAD s/p stent about 4 years ago, prior strokes, anxiety, GERD, low back surgery, presenting after waking with leg weakness and falling to the right. On exam, he has significant R leg weakness more than L leg weakness. There is no nystagmus or dysmetria. It is difficult for him to sit up and he tends to fall backward as opposed to the right for me. He had similar symptoms with prior stroke therefore this could be recrudescence in the setting of a toxic/metabolic stressor, versus new stroke given his risk factors. Per ED provider, he has depressed reflexes. Unable for me to evaluate on video exam. If he does have worsening weakness that is a standing, alternative diagnoses such as GBS can be considered. So far however, he seems to have consistent leg weakness, actually better for me than on prior ED exam. Case discussed with ED Dr. Villalobos by phone. Our recommendations are outlined below. Recommendations: ? Stroke/Telemetry Floor ? Neuro Checks ? Bedside Swallow Eval ? DVT Prophylaxis ? IV Fluids, Normal Saline ? Head of Bed 30 Degrees ? Euglycemia and Avoid Hyperthermia (PRN Acetaminophen) ? Antihypertensives PRN if Blood pressure is greater than 220/120 or there is a concern for End organ damage/contraindications for permissive HTN. If blood pressure is greater than 220/120 give labetalol PO or IV or Vasotec IV with a goal of 15% reduction in BP during the first 24 hours. ?ASA 325 + Plavix 300 for today, then ASA 81 + Plavix 75 daily starting tomorrow, for total 21 days DAPT, then MAPT alone thereafter indefinitely Sign Out: ? Discussed with Emergency Department Provider Advanced Imaging:CTA Head and Neck Completed. LVO:No Patient is not a candidate for LEVI Metrics: Last Known Well: 03/10/2025 02:00:00 Arrival Time: 03/10/2025 05:37:00 Activation Time: 03/10/2025 06:54:25 Initial Response Time: 03/10/2025 06:55:02Symptoms: leg weakness and falling to the right. Initial patient interaction: 03/10/2025 07:22:12 NIHSS Assessment Completed: 03/10/2025 07:28:06Patient is not a candidate for Thrombolytic. Thrombolytic Medical Decision: 03/10/2025 07:28:07Patient was not deemed candidate for Thrombolytic because of following reasons: LKW outside 4.[address] Head: CT head unremarkable for acute infarction or hemorrhage per Radiology: Negative for acute hemorrhage, mass effect or midline shift I personally reviewed all the CT images that were available to me and it showed: No obvious new stroke or bleed. Multifocal chronic strokes L parietal, L basal ganglia, bilateral cerebellar Primary Provider Notified of Diagnostic Impression and Management Plan on: 03/10/2025 07:39:20 History of Present Illness:Patient is a 74 year old Male. Patient was brought by EMS for symptoms of leg weakness and falling to the right. 74 yo RH M with h/o CAD s/p stent about 4 years ago, prior strokes, anxiety, GERD, low back surgery, presenting with leg weakness and falling to the right. LKN 0200 when he walked to the bathroom normally. He walks unassisted. This morning when he woke up around [id number], he tried to get up out of bed. It didn't happen. He was able to swing his legs over the side of the bed. His upper body was still laying down in bed and he couldn't get it upright. No falls. EMS was called. They tried to sit him up but he kept falling to the right. No other focal symptoms today. He also has a mild headache on top of his head. He normally does get headaches described as small sharp pains from the top of his head to his eye - today's headache is the same as usual. He had a prior TIA 15 years ago. Symptom was disequilibrium. He was falling to the right. No prior known strokes until 6 weeks ago when he had an MRI due to chronic episodic vertigo. The MRI showed chronic strokes including cerebellar strokes but no acute strokes. ? Past Medical History: ?Coronary Artery Disease ?Stroke Other PMH:? anxiety, GERD Medications: No Anticoagulant use? Antiplatelet use:?Yes?ASA 81, Plavix Reviewed EMR for current medications Allergies:? Reviewed Social History: Smoking: No Alcohol Use: No Drug Use: No Family History: There is no family history of premature cerebrovascular disease pertinent to this consultation ROS : 14 Points Review of Systems was performed and was negative except mentioned in HPI. Past Surgical History: There Is No Surgical History Contributory To Today?s Visit There Is Surgical History of:? low back surgery, prostate surgery ? Examination: BP(160/86),?Pulse(61),?Blood Glucose(117) 1A: Level of Consciousness - Alert; keenly responsive?+ 0 1B: Ask Month and Age - Both Questions Right?+ 0 1C: Blink Eyes & Squeeze Hands - Performs Both Tasks?+ 0 2: Test Horizontal Extraocular Movements - Normal?+ 0 3: Test Visual Garcia - No Visual Loss?+ 0 4: Test Facial Palsy (Use Grimace if Obtunded) - Normal symmetry?+ 0 5A: Test Left Arm Motor Drift - No Drift for 10 Seconds?+ 0 5B: Test Right Arm Motor Drift - No Drift for 10 Seconds?+ 0 6A: Test Left Leg Motor Drift - No Drift for 5 Seconds?+ 0 6B: Test Right Leg Motor Drift - Some Effort Against [place]?+ 2 7: Test Limb Ataxia (FNF/Heel-Shine) - No Ataxia?+ 0 8: Test Sensation - Normal; No sensory loss?+ 0 9: Test Language/Aphasia - Normal; No aphasia?+ 0 10: Test Dysarthria - Normal?+ 0 11: Test Extinction/Inattention - No abnormality?+ 0 NIHSS Score:?2 NIHSS Free Text : ?L leg: difficulty lifting but with effort able to keep up without drift ?R leg: only able to briefly lift antigravity ?Unable to sit up without holding on to bed rails (falls backward, not to either side) Pre-Morbid Modified [place] Scale: 0 Points = No symptoms at all Spoke with :?Dr. Villalobos This consult was conducted in real time using interactive audio and video technology. Patient was informed of the technology being used for this visit and agreed to proceed. Patient located in hospital and provider located at home/office setting. Patient is being evaluated for possible acute neurologic impairment and high probability of imminent or life-threatening deterioration. I spent total of 40 minutes providing care to this patient, including time for face to face visit via telemedicine, review of medical records, imaging studies and discussion of findings with providers, the patient and/or family. Dr Jesica Alcaraz [facility] For Inpatient follow-up with [facility] physician please call [facility] at . As we are not an outpatient service for any post hospital discharge needs please contact the hospital for assistance. If you have any questions for the [facility] physicians or need to reconsult for clinical or diagnostic changes please contact us via [facility] at . Non-radiologist review of imaging performed to assist with emergent clinical decision-making. Remote physician workstations do not possess the same resolution, calibration, or diagnostic capabilities as hospital-based radiology reading stations, and formal radiologist read is necessary. Signature :?Jesica Alcaraz ?
--- NOTE | 2025-03-10 10:18 | PC.NURSE ---
Pt to MRI at this time
--- NOTE | 2025-03-10 13:01 | PC.NURSE ---
Admit providers at bedside
--- NOTE | 2025-03-10 14:30 | ESHP_ITS ---
<Statement entered by Adam Canales MD - 03/12/25 08:04> I reviewed above note and agree with findings and plans. I have also personally examined the patient with medicine team and went over assessment and plan with medical team including editing intern and resident physician. <Statement entered by José Callahan MD - 03/10/25 15:32> Patient was examined and case was reviewed with team including attending physician. Note reviewed, I agree with most of its contents and agree with the patient's care as documented by Dr. Alvarado 74 y/o M with PMHx of TIAs, GERD, seasonal allergies, CAD status post stent placement 4 years ago, anxiety, hyperlipidemia, and prior lower back surgery following a traumatic fall, who presented with acute bilateral lower extremity weakness. Patient had stroke alert called. LWK was some time last night. Patient initially woke up around 2am unable to move his bilateral lower extremities. He also noticed that he was swaying to his right side. No chest pain, shortness of breath, N/V/D, no changes in urinary habits or bowel movements. He does state that for the past week or 2 he has noticed that walking his usual distance with his dogs has been a bit more difficult particularly in his lower extremities which he states is like a twitching or buckling sensation that his legs are gonna give out. Patients symptoms all resolved in the ED by the time of our evaluation but have lasted since waking up at 2am. Patient will be admitted under observation for TIA work up. Neurology will evaluate the patient for possible spinal cord TIA. Will continue with aspirin, plavix, statin therapy for presumed TIA. Patient already had at least 2 contrast studies, will re-evaluate in the am Kidney fx and order abdominal aorta CTA to rule out, abdominal aortic aneurysm or dissection, given his cardiac history. Case discussed with my attending Dr. Ally Callahan MD PGY-2 Disclaimer: Despite multiple revisions, due to the dictation software being used, the document bellow may not be free of grammatical errors including phonetic/typographic errors. However, this does not deter from our commitment to providing health care in the patient's best interest in mind. Documentation for date of: 03/10/25 HPI History of Present Illness History of present illness: 74-year-old male with a past medical history significant for TIA (about 15 years ago, on aspirin and clopidogrel at home), GERD, seasonal allergies, CAD status post PCI (02/2021), anxiety, hyperlipidemia, restless leg syndrome and prior lower back surgery following a traumatic fall, who presented with acute bilateral lower extremity weakness. He reports that at approximately 2:00 AM he awoke to use the restroom and was able to ambulate normally at that time. He then awoke again at approximately 4:30 AM and noted a sudden inability to lift his legs off the bed, with the right leg weaker than the left. He also endorsed complete loss of sensation in both lower extremities at that time. The weakness persisted for several hours and resolved while in the ED, at which point he described a ?rushing sensation? in his lower extremities followed by return of motor and sensory function. He reports that his upper extremities were unaffected. He denies associated chest pain, shortness of breath, or other symptoms at the time of the lower extremity weakness. Also denies recent illness, nausea, vomiting, diarrhea, numbness or tingling, hematochezia, or dysuria. Patient is lives in [place] and traveled by airplane to [place] after Thanksgiving to visit his daughter, where he has remained since. He denies any recent additional travel or prolonged car rides. He reports that over the past 1?2 weeks he has noticed increasing difficulty walking his usual distance, particularly due to symptoms in his lower extremities, which he describes as a buckling sensation with concern that his legs may give out. All symptoms had resolved by the time of evaluation by IM team in the ED. ED Course: -Initial vitals were: BP 167/98, HR 62, RR 18, 98.1F, O2 sat 94% on room air. -Labs significant for: APTT 20.9, Sodium 146, Chloride 109, Creatinine 1.4, eGFR 53, glucose 114, AST 43, free T4 0.75. -Imaging included: * Brain MRI was negative for acute hemorrhage mass effect or midline shift. No acute infarct. 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 * CXR was negative for aspiration pneumonia. * Lumbar spine CT showed L5-S1 grade 1 anterolisthesis produces severe right L5 ganglionic compression. * Head CT was negative for acute hemorrhage, mass effect or midline shift. * Head/Neck CTA showed no significant neck arterial stenoses. No cerebral large vessel arterial occlusions or thrombus. * CTAP: Suspicious for mild edema about the head of the pancreas. No hydronephrosis. Normal appendix. No bowel obstruction. Colonic diverticulosis, no diverticulitis. Transpedicular lumbar stabilization L4-S1, grade 1 anterolisthesis L5 on S1. Moderate bilateral hip osteoarthritis. -In the ED, patient was given: Aspirin 325 mg x1, Clopidogrel 300 mg x1. Past Medical History: as above Past Surgical History: Lower back surgery following a traumatic fall about 4-5 years ago. Hernia surgery x3. Prostate surgery 08/2018. Family History: Father 61 years, diagnosed with other malignant neoplasm of unspecified site. Mother 89 years, had COPD. Social History: - Smoking: never smoker - Alcohol: none - Illicit drugs:none - Residence: lives in [place]. Current Medications: - Famotidine 40 mg QD. - Levocetirizine 5mg QD. - Topiramate 50 mg BID. - Montelukaust 10 mg QAM. - Aspirin 81 mg QD. - Omeprazole 40 mg QAM. - Ecitalopram 20 mg - Rosuvastatin 20 mg QPM. - Edita-Nora tablet QD. - Clopidogrel 75mg QD. Allergies: Levofloxacin. Patient's original code status was DNR but later changed to full code. Review of Systems Review of Systems Narrative Review of Systems: All 13 review of systems are negative except as listed above in the HPI. Exam Vital Signs Temp Pulse Resp BP Pulse Ox O2 Del Method 98.2 F 59 L 16 157/91 H 95 Room Air 03/10/25 13:01 03/10/25 13:01 03/10/25 13:01 03/10/25 13:01 03/10/25 13:01 03/10/25 13:01 Narrative Exam Physical Exam General: Awake and in no acute distress. Conversational and non-toxic appearing. HEENT: Normocephalic, atraumatic, extraocular movements intact, pupils equal and reactive to light. Heart: Regular rate and rhythm, no murmurs, rubs or gallops. Lungs: Clear to auscultation with no wheezing or crackles bilaterally. Non- labored respirations, symmetric chest rise, no use of accessory muscles. Abdomen: Soft, nondistended, nontender. No guarding or rebound tenderness. Neurologic: Alert and oriented x3, no gross neurological deficit, and patient able to move all 4 extremities. Extremities: No edema, clubbing or cyanosis. Skin: Warm and dry without rashes. Psychiatric: Cooperative, appropriate mood and affect. Results: Labs 03/10/25 07:01 03/10/25 06:04 Labs: Short CBC 03/10/25 Range/Units 07:01 WBC 7.7 (3.8-10.6) Thou/mm3 Hgb 15.5 (13.5-16.0) g/dL Hct 46.2 (41.0-53.0) % Plt Count 175 (140-440) Thou/mm3 BMP 03/10/25 06:04 Sodium 146 H Potassium 4.3 Chloride 109 H Carbon Dioxide 26.5 BUN 15 Creatinine 1.4 H Glucose 114 H Calcium 8.6 Cardiac Enzymes 03/10/25 03/10/25 Range/Units 06:04 07:01 Troponin I < 0.020 < 0.020 (0.0-0.045) ng/mL Liver Function 03/10/25 Range/Units 06:04 Total Bilirubin 0.6 (0.3-1.2) mg/dL AST 43 H (0-34) U/L ALT 37 (10-49) U/L Alkaline Phosphatase 111 (46-116) U/L Albumin 4.0 (3.4-4.8) gm/dL Urine 03/10/25 Range/Units 05:59 Urine Color Lt-Yellow (Lt Yel-Yel) Urine Clarity Clear (Clear/Hazy) Urine pH 7.0 (5.0-7.0) Ur Specific [place] 1.020 (1.001-1.035) Urine Protein Negative (Neg - Trace) Urine Glucose (UA) Negative (Negative) Quality Measures Quality Measures none Advance care planning discussed with:: patient Medications Home Medications and Allergies Home Medications ?Medication ?Instructions ?Recorded ?Confirmed ?Type topiramate 25 mg tablet (Topamax) 25 mg PO BID #0 tabs 07/06/16 03/03/20 History escitalopram oxalate 20 mg tablet 20 mg PO HS 11/12/19 03/10/25 History (Lexapro) famotidine 40 mg tablet 40 mg PO QDAY 11/12/1903/10 History ropinirole 0.5 mg tablet 0.5 mg PO HS 11/12/19 History vitamin B complex-vitamin C-folic 1 tab PO QDAY 03/10/25 History acid 0.8 mg tablet (Edita-Nora) ergocalciferol (vitamin D2) 1,250 50,000 unit PO QWEEK 11/13/19 03/03/20 History mcg (50,000 unit) capsule fluticasone propionate 50 2 spray intranasal QDAY 10/1503/10/25 History mcg/actuation nasal spray,suspension aspirin 81 mg tablet,delayed 81 mg PO QDAY 03/10/25 History release azelastine 137 mcg (0.1 %) nasal 2 spray intranasal QD AY 03/10/25 03/10/25 History spray clopidogrel 75 mg tablet 75 mg PO QDAY 03/10/2503/10 History levocetirizine 5 mg tablet 5 mg PO QDAY 03/10/2503/10 History montelukast 10 mg tablet 10 mg PO QDAY 03/10/2503/10 History omeprazole 40 mg capsule,delayed 40 mg PO QDAY 5 03/10/25 History release rosuvastatin 20 mg tablet 20 mg PO .QHS 03/10/2503/10 History topiramate 50 mg tablet 50 mg PO Q12H 03/10/2503/10 History Allergies Allergy/AdvReac Type Severity Reaction Status Date / Time [facility] Allergy Verified 03/10/25 05:49 Visit Medications Acetaminophen (Acetaminophen 325 Mg Tablet) 650 mg PO Q6H PRN PRN Reason: Fever >101.5 Stop: 04/09/25 13:24 Aspirin (Aspirin Ec 81 Mg Tabec) 81 mg PO QDAY [facility] Stop: 04/10/25 08:59 Clopidogrel Bisulfate (Clopidogrel Bisulfate 75 Mg Tablet) 75 mg PO QDAY [facility] Stop: 04/10/25 08:59 Heparin Sodium (Porcine) (Heparin Sod Inj 5000 Unit/Ml Vial) 5,000 unit SC Q8HR [facility] Stop: 03/24/25 13:59 Sodium Chloride (Ns) 1,000 mls @ 100 mls/hr IV Q10H [facility] Stop: 03/11/25 01:59 Last Admin: 03/10/25 06:40 Dose: 100 mls/hr Ondansetron HCl (Ondansetron Inj 2 Mg/Ml Inj 2 Ml) 4 mg IVP Q6H PRN; Protocol PRN Reason: NAUSEA OR VOMITING Stop: 04/09/25 13:24 Pantoprazole Sodium (Pantoprazole 40 Mg Tablet) 40 mg PO QDAY [facility] Stop: 04/10/25 08:59 Discontinued Medications Aspirin (Aspirin 325 Mg Tablet) 325 mg PO X1 ONE Stop: 03/10/25 07:44 Last Admin: 03/10/25 07:57 Dose: 325 mg Clopidogrel Bisulfate (Clopidogrel Bisulfate 75 Mg Tablet) 300 mg PO X1 ONE Stop: 03/10/25 07:44 Last Admin: 03/10/25 07:57 Dose: 300 mg Assessment & Plan Plan 74-year-old male with a past medical history significant for TIA (about 15 years ago, on aspirin and clopidogrel at home), GERD, seasonal allergies, CAD status post PCI (02/2021), anxiety, hyperlipidemia, restless leg syndrome and prior lower back surgery following a traumatic fall, who presented with transient acute bilateral lower extremity weakness, admitted for stroke vs TIA workup. #Transient ischemic attack #CVA, unlikely #Spinal cord transient ischemic attack? #Transient acute bilateral lower extremity weakness #History of TIA - History stroke/TIA: 15 years ago. - History of afib: none. - Smoking history: none. - Initial symptoms: Acute bilateral lower extremity weakness (right more than left). - Initial NIHSS score of 2. - Initial BP: 167/98. - EKG: sinus bradycardia. - Initial glucose: 117. - Hemoglobin A1c: 5.3 (08/2022). Pending A1c. - Lipids: triglyceride 132 (wnl), cholesterol 107 (low), HDL 56 (wnl). - TSH: 1.67 (wnl). - Troponin: < 0.020. - CT head: negative for acute hemorrhage, mass effect or midline shift. - CTA head/neck: no significant neck arterial stenoses. No cerebral large vessel arterial occlusions or thrombus. - MRI/MRA: negative for acute hemorrhage mass effect or midline shift. No acute infarct. 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 - TTE: pending. - Meds given: Aspirin 325 mg x1, Clopidogrel 300 mg x1. - Candidate for IV thrombolysis? No. Plans: * Start Aspirin 81 and Plavix 75 daily tomorrow, for total 21 days DAPT, then MAPT alone thereafter indefinitely. * Atorvastatin 80 mg PO daily. * Neurology consulted - appreciate recs. * Neuro Checks Q4H. * Bedside Swallow Eval. * Head of Bed 30 Degrees. * Euglycemia and Avoid Hyperthermia (PRN Acetaminophen). * Speech evaluation. * Echocardiography with bubble study ordered. * Antihypertensives PRN if blood pressure is greater than 220/120 or there is a concern for end organ damage/contraindications for permissive HTN. If blood pressure is greater than 220/120 give labetalol PO or IV with a goal of 15% reduction in BP during the first 24 hours. * Due to multiple recent contrast studies, renal function will be re-evaluated in the morning before proceeding with CTA of the abdominal aorta to rule out aneurysm or dissection, given his cardiac history. #Coronary artery disease s/p PCI #Hyperlipidemia - PCI, PTCA stent placement, mid left anterior descending artery, placement of drug-eluting stent by Dr. Castellanos in 02/2021. - Home medication: Rosuvastatin 20 mg QPM, Aspirin 81 mg PO QD, and Plavix 75 mg PO QD. Plan: * Atorvastatin 80 mg PO QHS once pass swallow screen. * Start Aspirin 81 mg PO QD and Plavix 75 mg PO QD tomorrow (03/11) once pass swallow screen. #L5?S1 Grade I Anterolisthesis - Noted on lumbar spine CT. - Likely chronic and degenerative in nature, particularly given the patient?s history of prior lumbar surgery. - At this time, there are no persistent focal neurologic deficits, and the patient?s acute lower extremity weakness has resolved, making this less likely to represent an acute compressive etiology. However, given transient neurologic symptoms, contribution to symptoms cannot be entirely excluded. Plan: * Continue conservative management given grade I severity and absence of red flag symptoms (no numbness in perineal or inner thigh region, no bowel or bladder dysfunction, no loss of rectal tone). * Pain control as needed (acetaminophen). * Activity as tolerated. * Monitor for neurologic changes, including worsening weakness, sensory loss, or bowel/bladder dysfunction. * Consider outpatient spine or neurosurgery follow-up if symptoms recur or progress. #Anxiety Plan: * Continue home medication: Escitalopram 20 mg PO HS once pass swallow screen. #GERD - Home medication: Famotidine 40 mg QD and Omeprazole 40 mg QAM. Plan: * Pantoprazole 40 mg PO QD once pass swallow screen. #Benign prostatic hyperplasia Plan: * Continue morel. #Restless leg syndrome Health Maintenance Disposition: observation DVT prophylaxis: Heparin 5,000 U subQ GI prophylaxis: Pantoprazole 40 mg po daily Diet: NPO, cardiac diet once pass swallow screen Morel: present Lines: Peripheral IV CODE STATUS: FULL --- Patient plan of care was discussed with the senior resident, Dr. Kem Callahan, and attending physician, Dr. Canales. Abdullahi Alvarado, DO PGY-1
--- NOTE | 2025-03-10 14:32 | ECHO_ITS ---
Patient Info Name: Laly Esqueda Age: 74 years : 1950 Gender: Male Ht: 180 cm Wt: 113 kg BSA: 2.42 m2 BP: 167 / 79 mmHg HR: 60 bpm Exam Date: 03/11/2025 12:15 PM Admit Date: 03/10/2025 Site: [facility] Room Number: [id number] Patient Status: I Exam Type: CA echo doppler complete Housekeeper/Laundry Assistant: Jaz Silverman Ordering Physician: José Callahan Study Info Indications CVA work up - Primary Location: [id number] Left Ventricular Outflow Tract Name Value Normal LVOT 2D LVOT Diameter 2.0 cm LVOT Doppler LVOT Peak Velocity 118 cm/s LVOT Mean Gradient 3 mmHg LVOT VTI 25 cm LVOT VTI/AV VTI Ratio 0.8 LVOT Stroke Volume 79 ml Pulmonic Valve Name Value Normal PV Doppler PV Peak Velocity 107 cm/s PV Regurgitation Doppler NE Peak End Diastolic Velocity 163 cm/s Mitral Valve Name Value Normal MV Doppler MV Mean Gradient 1 mmHg MV Decel George 265 cm/s2 MV PHT 78 ms MV Area (PHT) 2.8 cm2 4.0-5.0 MV Area (Cont Eq VTI) 2.4 cm2 MV Diastolic Function MV E Peak Velocity 71 cm/s MV A Peak Velocity 69 cm/s MV E/A 1.0 MV Annular TDI MV Septal e' Velocity 7.7 cm/s MV E/e' (Septal) 9.2 MV Lateral e' Velocity 10.1 cm/s MV E/e' (Lateral) 7.0 MV e' Average 8.91 cm/s MV E/e' (Average) 8.1 Tricuspid Valve Name Value Normal TV Regurgitation Doppler TR Peak Velocity 248 cm/s Estimated PAP/RSVP RA Pressure 8 mmHg <=5 PA Systolic Pressure 33 mmHg <36 RV Systolic Pressure 33 mmHg <36 Aortic Valve Name Value Normal AV 2D/MM AV Cusp Sep (MM) 1.4 cm AV Doppler AV Peak Velocity 145 cm/s AV Mean Gradient 5 mmHg AV VTI 32 cm AV Area (Cont Eq VTI) 2.5 cm2 >=3.0 AV Area (Cont Eq Yusuf) 2.6 cm2 AV DI (Yusuf) 0.81 AV Regurgitation 2D LVOT Area 3.1 cm2 Ventricles Name Value Normal LV Dimensions 2D/MM IVS Diastolic Thickness (2D) 1.1 cm 0.6-1.0 LVID Diastole (2D) 5.0 cm 4.2-5.8 LVIW Diastolic Thickness (2D) 1.0 cm 0.6-1.0 LVID Systole (2D) 3.0 cm 2.5-4.0 LVOT Diameter 2.0 cm LV Mass (2D Cubed) 194.38 g 88.00-224.00 LV Mass Index (2D Cubed) 80 g/m2 49-115 Relative Wall Thickness (2D) 0.40 <=0.42 IVS/LVIW Diastolic Thickness (2D) 1.10 0.00-1.50 LV Fractional Shortening/Ejection Fraction 2D/MM LV Fractional Shortening (2D) 40 % 25-43 LV EF (2D Teichholz) 70 % Atria Name Value Normal LA Dimensions LA Volume (4C A-L) 76 ml LA Volume (BP A-L) 71 ml Left Ventricle Left ventricular chamber dimension is normal. Left ventricular systolic function is normal with visually estimated ejection fraction of 55-60%. There is mild concentric hypertrophy noted in the left ventricle. Left ventricular segmental wall motion is normal. There is normal diastolic function in the left ventricle. Right Ventricle Right ventricular chamber dimension is normal. Right ventricular systolic function is normal. Left Atrium Left atrial chamber dimension is moderately enlarged. Right Atrium Right atrial chamber dimension is normal. Aortic Valve The aortic valve is trileaflet. There is mild aortic valve sclerosis. There is no aortic valve stenosis with a peak velocity of 145 cm/s, mean gradient of 5 mmHg, and aortic valve area of 2.5 cm2. There is no aortic valve regurgitation. Pulmonic Valve The pulmonic valve is normal. There is no pulmonic valve stenosis. There is mild pulmonic regurgitation. Mitral Valve The mitral valve has normal leaflets. There is no mitral valve stenosis. There is mild mitral valve regurgitation. Tricuspid Valve The tricuspid valve leaflets are normal. There is no tricuspid valve stenosis. There is mild tricuspid valve regurgitation. No pulmonary hypertension, estimated pulmonary arterial systolic pressure is 33 mmHg and systemic blood pressure of 167 mmHg in systole. Pericardium/Pleural The pericardium appears normal. There is no pericardial effusion. No pleural effusion visualized. Inferior Vena Cava Not well visualized inferior vena cava with >50% collapse upon inspiration consistent with normal right atrial pressure, 8 mmHg. Aorta The aortic measurements are indexed to age and body surface area. The aortic root at the sinus of Valsalva is not well visualized. The prox ascending aorta is not well visualized. Summary 1. Left ventricle size is normal and systolic function is normal. Estimated ejection fraction is 55-60%. There is normal diastolic function. There is mild concentric hypertrophy noted. 2. Right ventricle chamber size is normal and systolic function is normal. Estimated RVSP is 33 mmHg. 3. There is mild aortic valve sclerosis with no stenosis and no regurgitation. 4. There is mild mitral and tricuspid valve regurgitation. Mild MAC. 5. The left atrium is moderately enlarged. The right atrium is normal. 6. Not well visualized IVC with estimated RA pressure 8 mmHg. Report Signatures Finalized by Konstantin Sheehan on 03/13/2025 08:46 AM
[2025-03-10 14:33] LABS: Cardiac Risk Estimate 1.9 RATIO (4.0-6.7); Cholesterol 107 mg/dL (132-200); HDL Cholesterol 56 mg/dL (40-60); LDL Cholesterol,Calculated 25 mg/dL (0-130); Triglycerides 132 mg/dL (30-150)
[2025-03-10] MEDS: HEPARIN SOD INJ 5000 UNIT/ML VIAL SC ×2 (14:40→20:41)
--- NOTE | 2025-03-10 15:00 | PC.NURSE ---
Pt states he wants to change his code status from DNR to full code. This RN will notify MD to change pt status to full code
--- NOTE | 2025-03-10 15:10 | PC.NURSE ---
Dr. Brownlee made aware of pt's change of status from DNR to full code
[2025-03-10] MEDS: TOPIRAMATE 25 MG TABLET 50 MG PO ×2 (15:18→20:40)
--- NOTE | 2025-03-10 17:43 | PC.NURSE ---
REPORT CLLED TO CANDY LUZ ON MED SURG. ALL QUESTIONS ANSWERED.
--- NOTE | 2025-03-10 19:11 | PD.VCONSULT1 ---
Telemedicine visit statement This visit was conducted with the use of interactive audio and video telecommunications system that permits real time communication between the patient and the provider. Patient's verbal consent for virtual visit was obtained on 03/10/25 at 1911. History of Present Illness History of Present Illness History of present illness: Patient is a 74-year-old male with hx of TIA about 15 years ago, on aspirin and clopidogrel at home, GERD, seasonal allergies, CAD status post PCI (02/2021), anxiety, hyperlipidemia, restless leg syndrome and prior lower back surgery following a traumatic fall, who presented with acute bilateral lower extremity weakness with numbness. He reports that at approximately 2:00 AM he awoke to use the restroom and was able to ambulate normally at that time. He then awoke again at approximately 4:30 AM and noted a sudden inability to lift his legs off the bed, with the right leg weaker than the left. The weakness persisted for several hours and resolved while in the ED, at which point he described a ?rushing sensation? in his lower extremities followed by return of motor and sensory function. He reports that his upper extremities were unaffected. He denies associated chest pain, shortness of breath, or other symptoms at the time of the lower extremity weakness. Also denies recent illness, nausea, vomiting, diarrhea, numbness or tingling, hematochezia, or dysuria. Patient lives in [place] and flew to [place] after Thanksgiving to visit his daughter, where he has remained since. He denies any recent additional travel or prolonged car rides. He reports that over the past 1?2 weeks he has noticed increasing difficulty walking his usual distance, particularly due to symptoms in his lower extremities, which he describes as a buckling sensation with concern that his legs may give out. All symptoms had resolved by the time we decided to keep him for observation. workup in the ER: vitals were: BP 167/98, HR 62, RR 18, 98.1F, O2 sat 94% on room air. Labs significant for: APTT 20.9, Sodium 146, Chloride 109, Creatinine 1.4, eGFR 53, glucose 114, AST 43, free T4 0.75. Imaging: Brain MRI was negative for acute hemorrhage mass effect or midline shift. No acute infarct. 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 CXR was negative for aspiration pneumonia. Lumbar spine CT showed L5-S1 grade 1 anterolisthesis produces severe right L5 ganglionic compression. Head CT was negative for acute hemorrhage, mass effect or midline shift. Head/Neck CTA showed no significant neck arterial stenoses. No cerebral large vessel arterial occlusions or thrombus. CTAP: Suspicious for mild edema about the head of the pancreas. No hydronephrosis. Normal appendix. No bowel obstruction. Colonic diverticulosis, no diverticulitis. Transpedicular lumbar stabilization L4-S1, grade 1 anterolisthesis L5 on S1. Moderate bilateral hip osteoarthritis. Patient was given: Aspirin 325 mg x1, Clopidogrel 300 mg x1. Patient got admitted to [facility] for observation and workup, neurology was consulted to evaluate further. Past Medical History Past Medical History NEUROLOGIC: Positive Neurological Disorders and Transient Ischemic Attacks (TIA) CARDIAC: Positive Hypertension GASTROINTESTINAL: Positive Gastrointestinal Disorders and Hiatal Hernia GENITOURINARY: Positive Benign Prostatic Hyperplasia Family History FAMILY HISTORY: Positive Family Respiratory Disorders and Family Cancer Social History SMOKING STATUS: Never smoker SUBSTANCE USE: does not use ALCOHOL: Never TeleMedicine ROS Pertinent Review of Systems Systems Reviewed: All systems reviewed, normal except as documented Meds Home Medications and Allergies Home Medications ?Medication ?Instructions ?Recorded ?Confirmed ?Type escitalopram oxalate 20 mg tablet 20 mg PO HS 11/12/19 03/10/25 History (Lexapro) famotidine 40 mg tablet 40 mg PO QDAY 11/12/19 03/10/25 History vitamin B complex-vitamin C-folic 1 tab PO QDAY 11/12/19 03/10/25 History acid 0.8 mg tablet (Edita-Nora) fluticasone propionate 50 2 spray intranasal QDAY 11/13/19 03/10/25 History mcg/actuation nasal spray,suspension aspirin 81 mg tablet,delayed 81 mg PO QDAY 03/10/25 03/10/25 History release azelastine 137 mcg (0.1 %) nasal 2 spray intranasal QDAY 03/10/25 03/10/25 History spray clopidogrel 75 mg tablet 75 mg PO QDAY 03/10/25 03/10/25 History levocetirizine 5 mg tablet 5 mg PO QDAY 03/10/25 03/10/25 History montelukast 10 mg tablet 10 mg PO QDAY 03/10/25 03/10/25 History omeprazole 40 mg capsule,delayed 40 mg PO QDAY 03/10/25 03/10/25 History release rosuvastatin 20 mg tablet 20 mg PO .QHS 03/10/25 03/10/25 History topiramate 50 mg tablet 50 mg PO Q12H 03/10/25 03/10/25 History Allergies Allergy/AdvReac Type Severity Reaction Status Date / Time levofloxacin (From Levaquin) Allergy Verified 03/10/25 05:49 Virtual exam Vital Signs Temp Pulse Resp BP Pulse Ox O2 Del Method 97.7 F 57 L 20 150/85 H 94 L Room Air 03/10/25 16:51 03/10/25 16:51 03/10/25 16:51 03/10/25 16:51 03/10/25 16:51 03/10/25 16:51 Results Labs 03/10/25 07:01 03/10/25 06:04 Labs: Short CBC 03/10/25 Range/Units 07:01 WBC 7.7 (3.8-10.6) Thou/mm3 Hgb 15.5 (13.5-16.0) g/dL Hct 46.2 (41.0-53.0) % Plt Count 175 (140-440) Thou/mm3 BMP 03/10/25 06:04 Sodium 146 H Potassium 4.3 Chloride 109 H Carbon Dioxide 26.5 BUN 15 Creatinine 1.4 H Glucose 114 H Calcium 8.6 Cardiac Enzymes 03/10/25 03/10/25 Range/Units 06:04 07:01 Troponin I < 0.020 < 0.020 (0.0-0.045) ng/mL Liver Function 03/10/25 Range/Units 06:04 Total Bilirubin 0.6 (0.3-1.2) mg/dL AST 43 H (0-34) U/L ALT 37 (10-49) U/L Alkaline Phosphatase 111 (46-116) U/L Albumin 4.0 (3.4-4.8) gm/dL Urine 03/10/25 Range/Units 05:59 Urine Color Lt-Yellow (Lt Yel-Yel) Urine Clarity Clear (Clear/Hazy) Urine pH 7.0 (5.0-7.0) Ur Specific [place] 1.020 (1.001-1.035) Urine Protein Negative (Neg - Trace) Urine Glucose (UA) Negative (Negative) Assessment & Plan Problem List (1) TIA (transient ischemic attack): Status: Acute Assessment and plan: Involving the spinal cord acute onset of bilateral lower extremity weakness resolved completely. no recurrence reported after admission. follow-up with the CT angiogram of the abdominal aorta to look for vascular pathology Reviewed CT head, CT angiogram of the head and neck and MRI brain and spine. Noted chronic degenerative changes in the lumbar spine but it does not explain his transient neurological symptom of paraparesis. continue with aspirin 81 mg, Plavix 75 mg and statin
[2025-03-10] MEDS: ATORVASTATIN CALCIUM 20 MG TABLET 80 MG PO (20:40)
[2025-03-10] MEDS: ESCITALOPRAM OXALATE 10 MG TABLET 20 MG PO (20:41)
[2025-03-11] VITALS: BP 140/81; PULSE 64; PULSE 65; RESP 18; TEMP 36.2; O2SAT 93
[2025-03-11 04:00] VITALS: BP 152/89; PULSE 60; PULSE 67; RESP 17; TEMP 36.1; O2SAT 95
[2025-03-11] MEDS: HEPARIN SOD INJ 5000 UNIT/ML VIAL SC (05:42)
[2025-03-11 06:00] VITALS: BMI 36.4
[2025-03-11 06:33] LABS: Basophils # (Auto) 0.1 Thou/mm3 (0.0-0.2); Basophils % (Auto) 1 % (0-2.5); Eosinophils # (Auto) 0.5 Thou/mm3 (0.0-0.5); Eosinophils % (Auto) 7 % (0-10); Hematocrit 45.1 % (41.0-53.0); Hemoglobin 15.3 g/dL (13.5-16.0); Immature Granulocytes Auto 0.02 Thou/mm3 (0.00-0.00); Lymphocytes # (Auto) 1.6 Thou/mm3 (1.0-4.8); Lymphocytes % (Auto) 24 % (10-50); Mean Corpuscular HGB Conc 33.9 g/dl (31.0-37.0); Mean Corpuscular Hemoglobin 31.6 pg (25.0-35.0); Mean Corpuscular Volume 93 fL (80-100); Monocytes # (Auto) 0.7 Thou/mm3 (0.0-0.8); Monocytes % (Auto) 11 % (0-12); Neutrophils # (Auto) 3.7 Thou/mm3 (1.8-7.7); Neutrophils % (Auto) 57 % (37-80); Nucleated Red Blood Cell # 0.00 Thou/mm3 (0.00-0.00); Nucleated Red Blood Cell % 0 /100 WBC (0); Platelet Count 172 Thou/mm3 (140-440); RDW Standard Deviation 43.7 fL (35.1-43.9); Red Blood Count 4.84 Miln/mm3 (4.50-5.90); White Blood Count 6.5 Thou/mm3 (3.8-10.6)
[2025-03-11 07:18] LABS: Alanine Aminotransferase 32 U/L (10-49); Albumin, Serum 3.8 gm/dL (3.4-4.8); Albumin/Globulin Ratio 1.7 (1.2-2.2); Alkaline Phosphatase 75 U/L (46-116); Anion Gap 13 (7-16); Aspartate Amino Transferase 38 U/L (0-34); BUN/Creatinine Ratio 9 Ratio (12-20); Bilirubin,Total 1.0 mg/dL (0.3-1.2); Blood Urea Nitrogen 10 mg/dL (9-23); Calcium 8.3 mg/dL (8.3-10.6); Calcium (Corrected) 8.5 mg/dL (8.5-10.1); Carbon Dioxide 20.7 mMol/L (20.0-31.0); Chloride 111 mMol/L (98-107); Creatinine (Component) 1.1 mg/dL (0.6-1.3); Estimated Creatinine Clearance 78.3 mL/min (>60); Globulin 2.3 gm/dL (2.3-3.5); Glucose 98 mg/dL (74-106); Magnesium 1.7 mg/dL (1.6-2.6); Osmolality,Calculated 287 (275-295); Phosphorous 3.1 mg/dL (2.4-5.1); Potassium 3.8 mMol/L (3.4-5.1); Sodium 145 mMol/L (136-145); Thyroid Stimulating Hormone 1.59 uIU/mL (0.55-4.78); Total Protein 6.1 gm/dL (5.7-8.2); eGFR > 60 See Note
--- NOTE | 2025-03-11 07:26 | XR_ITS ---
Examination: CTA chest, with intravenous contrast. CTA abdomen, with intravenous contrast. CTA pelvis, with intravenous contrast. 2-D sagittal and coronal reconstructions. 3-D reconstructions. Date and time of exam: March 11, 2025, 0815 hours INDICATIONS: Chest and abdominal pain shortness of breath today CTDI vol (mgy) 21.4 DLP (MGycm) 1360 Technique: Multiple CTA images, 2.0 mm slice thickness, obtained chest, abdomen, pelvis, with the high-resolution 64 slice scanner. 100 cc Isovue-370 is administered intravenously. Sagittal and coronal 2-D reconstructions are obtained. 3-D reconstructions, angiographic images are obtained. 3-D postprocessing, including vascular maximum intensity projections. Low dose protocols were performed. One or more of the following dose reduction techniques were used; automated exposure control, adjustment of the mA and/or KV according to patient size, use of iterative reconstruction technique. Findings: No thoracic aortic aneurysmal dilatation or dissection Pulmonary artery opacification is poor, no gross pulmonary artery emboli No pneumonia or pulmonary edema or pleural disease No visualized liver or splenic lesion Absent gallbladder No pancreatic or adrenal mass No renal or ureteral calculi, no hydronephrosis Abdominal aorta is normal in size, no dissection Normal appendix No bowel obstruction There is mild wall thickening and hyperemia involving the entire colon Scattered colonic diverticulosis Prostate is irregular in contour 3.1 cm transverse dimension, penile balloon Transpedicular lumbar stabilization L4-S1 with disc spacer L5-S1 Significant osteopenia Moderate narrowing hip joint IMPRESSION: No thoracic or abdominal aortic aneurysm dilatation or dissection Pulmonary artery opacification is reduced, no gross pulmonary artery emboli. No pneumonia, pulmonary edema or pleural disease. Normal appendix No bowel obstruction Mild diffuse nonspecific colitis pattern, consider Crohn's disease, ulcerative colitis
[2025-03-11 07:30] LABS: Glucose Estimated Average 123 mg/dL (80-131); Hemoglobin A1C 5.9 % Hgb (4.8-6.0)
--- NOTE | 2025-03-11 07:44 | PD.RESPRO ---
Documentation for date of: 03/11/25 Exam Vital Signs Temp Pulse Resp BP Pulse Ox O2 Del Method 97.0 F 67 17 152/89 H 95 Room Air 03/11/25 04:00 03/11/25 04:00 03/11/25 04:00 03/11/25 04:00 03/11/25 04:00 03/11/25 04:00 Objective Labs 03/11/25 05:19 03/11/25 05:19 Labs: Laboratory Results - last 24 hr 03/10/25 03/11/25 07:01 05:19 WBC 6.5 RBC 4.84 Hgb 15.3 Hct 45.1 MCV 93 MCH 31.6 MCHC 33.9 RDW Std Deviation 43.7 Plt Count 172 Neut % (Auto) 57 Lymph % (Auto) 24 [place]ff[place] % (Auto) 11 Eos % (Auto) 7 Baso % (Auto) 1 Neut # (Auto) 3.7 Lymph # (Auto) 1.6 [place] # (Auto) 0.7 Eos # (Auto) 0.5 Baso # (Auto) 0.1 Immature Gran # (Auto) 0.02 H Absolute Nucleated RBC 0.00 Immature Gran % 0 Nucleated RBC % 0 Sodium 145 Potassium 3.8 D Chloride 111 H Carbon Dioxide 20.7 Anion Gap 13 BUN 10 Creatinine 1.1 Estim Creat Clear Calc 78.3 eGFR > 60 BUN/Creatinine Ratio 9 L Glucose [address] Glu mg/dL 123 Hemoglobin A1c 5.9 Calculated Osmolality 287 Calcium 8.3 Corrected Calcium 8.5 Phosphorus 3.1 Magnesium 1.8 1.7 Total Bilirubin 1.0 AST 38 H ALT 32 Alkaline Phosphatase 75 D Troponin I < 0.020 B-Natriuretic Peptide < 20 Total Protein 6.1 Albumin 3.8 Globulin 2.3 Albumin/Globulin Ratio 1.7 Triglycerides 132 Cholesterol 107 L LDL Cholesterol, Calc 25 HDL Cholesterol 56 Cholesterol/HDL Ratio 1.9 L TSH 1.59 Ethyl Alcohol < 3.0 Quality Measures Quality Measures none Assessment & Plan Assessment Current Active Medications: Generic Name Dose Route Start Last Admin Trade Name Freq PRN Reason Stop Dose Admin Acetaminophen 650 mg 03/10/25 13:25 Acetaminophen 325 Mg Tablet PO 04/09/25 13:24 Q6H PRN Fever >101.5 Aspirin 81 mg 03/11/25 09:00 Aspirin Ec 81 Mg Tabec PO 04/10/25 08:59 QDAY VAIBHAV Atorvastatin Calcium 80 mg 03/10/25 21:00 03/10/25 20:40 Atorvastatin Calcium 20 Mg Tablet PO 04/09/25 20:59 80 mg HS VAIBHAV Administration Clopidogrel Bisulfate 75 mg 03/11/25 09:00 Clopidogrel Bisulfate 75 Mg Tablet PO 04/10/25 08:59 QDAY VAIBHAV Escitalopram Oxalate 20 mg 03/10/25 21:00 03/10/25 20:41 Escitalopram Oxalate 10 Mg Tablet PO 04/09/25 20:59 20 mg HS VAIBHAV Administration Heparin Sodium (Porcine) 5,000 unit 03/10/25 14:00 03/11/25 05:42 Heparin Sod Inj 5000 Unit/Ml Vial SC 03/24/25 13:59 5,000 unit Q8HR VAIBHAV Administration Magnesium Sulfate 2 gm in 50 mls @ 25 mls/hr 03/11/25 07:39 Magnesium Sulfate Ivpb IV 03/11/25 09:38 X1 ONE Ondansetron HCl 4 mg 03/10/25 13:25 Ondansetron Inj 2 Mg/Ml Inj 2 Ml IVP 04/09/25 13:24 Q6H PRN NAUSEA OR VOMITING Protocol Pantoprazole Sodium 40 mg 03/11/25 09:00 Pantoprazole 40 Mg Tablet PO 04/10/25 08:59 QDAY VAIBHAV Potassium Chloride 40 meq 03/11/25 07:38 Potassium Chloride 20 Meq Tabcr PO 03/11/25 07:39 X1 ONE Topiramate 50 mg 03/10/25 14:45 03/10/25 20:40 Topiramate 25 Mg Tablet PO 04/09/25 14:44 50 mg Q12HR VAIBHAV Administration
[2025-03-11 08:00] VITALS: BP 167/79; PULSE 63; PULSE 67; RESP 17; TEMP 36.1; O2SAT 95
[2025-03-11] MEDS: TOPIRAMATE 25 MG TABLET 50 MG PO (09:55)
[2025-03-11] MEDS: ASPIRIN EC 81 MG TABEC PO (09:55)
[2025-03-11] MEDS: Magnesium Sulfate 2 GM Ivpb 2 GM/50 ML BAG IV (09:55)
[2025-03-11] MEDS: CLOPIDOGREL BISULFATE 75 MG TABLET PO (09:55)
[2025-03-11] MEDS: PANTOPRAZOLE 40 MG TABLET PO (09:55)
--- NOTE | 2025-03-11 11:51 | ESDS_ITS ---
<Statement entered by Adam Canales MD - 03/12/25 14:34> I reviewed above note and agree with findings and plans. I have also personally examined the patient with medicine team and went over assessment and plan with medical team including partner marketing intern and resident physician. <Statement entered by José Callahan MD - 03/11/25 12:21> Patient was examined and case was reviewed with team including attending physician. Note reviewed, I agree with most of its contents and agree with the patient's care. José Callahan MD PGY-2 Planned Discharge Date 03/11/25 DS: Providers Provider Date of admission: 03/10/25 13:11 Primary care physician: Kavin Courtney MD Admitting Provider: Adam Canales MD Attending Provider on Admission: Adam Canales MD Consults: 03/10/25 06:52 Consult to Neurology / Tele-Neurology Routine Comment: Consulting Provider: [facility] 03/10/25 13:37 Consult to Neurology / Tele-Neurology Stat Comment: Consulting Provider: Payam Wisdom 03/10/25 15:43 Referral Speech Therapy Routine Comment: Attending Provider on DC: Adam Canales MD Discharging Provider: Abdullahi Alvarado DO Anticipated date of discharge: 03/11/25 DS: Diagnosis Problem List Completed Was Problem List Reviewed/Reconciled?: Yes Hospital Course Hospital Course Hospital course: 74-year-old male with PMH of prior TIA, coronary artery disease status post PCI (2020), hyperlipidemia, GERD, anxiety, restless leg syndrome, and prior lumbar spine surgery who presented with acute transient bilateral lower extremity weakness concerning for TIA versus CVA workup. The patient presented after awakening with sudden inability to move or feel both lower extremities, right worse than left, which resolved spontaneously after several hours while in the ED. Stroke alert was activated. Initial NIHSS was 2. CT head, CTA head/neck, MRI brain, and MRA showed no evidence of acute infarct or large vessel occlusion, with findings limited to chronic microvascular disease and old infarcts. Lumbar spine CT demonstrated chronic L5?S1 grade I anterolisthesis without acute compr essive findings. Neurology was consulted and felt the presentation was most consistent with a transient ischemic attack possibly involving the spinal cord, with no evidence of acute cerebral CVA. CTA of the chest, abdomen, and pelvis was obtained to evaluate for vascular pathology and showed no thoracic or abdominal aortic aneurysm, dilation, or dissection, no pulmonary embolism, and no acute ca rdiopulmonary process. Imaging did note mild diffuse nonspecific colitis, without bowel obstruction. The patient was treated with aspirin and clopidogrel loading doses and continued on dual antiplatelet therapy and high-intensity statin. Symptoms did not recur during hospitalization and has completely resolved. Renal function remained stable after multiple contrast studies. Patient is medically and physically stable for discharge. Diagnosis: #Transient ischemic attack with spinal cord involvement #Transient acute bilateral lower extremity weakness, resolved #History of TIA #Coronary artery disease, status post PCI with drug-eluting stent (2020) #Hyperlipidemia #L5?S1 grade I anterolisthesis, chronic #Mild diffuse nonspecific colitis, incidental finding #Anxiety #Gastroesophageal reflux disease #Restless leg syndrome Discharge Plan: Follow up with primary care physician within 1 week of discharge. Instructions have been explained to the patient with regards to their medications and how to take them. Patient was able to explain back to physician and nursing staff how to take their medications. Patient expressed understanding with instructions. Continue to take the rest of your medications as prescribed by your primary care physician. Patient has been explained that should any symptoms recur or worsen patient is instructed to return to the Emergency Department. Follow-up outpatient with cardiology, neurology for TIA, and gastroenterology for mild diffuse nonspecific colitis pattern found on imaging. Case discussed with my senior resident Dr. Kem Callahan Case discussed with my attending Dr. Canales. Abdullahi Alvarado DO PGY 1 Status at Discharge Overall status at discharge: patient is back to baseline Time Spent with Patient Time attestation: Total time spent providing and/or coordinating discharge services: Time spent: Greater than 30 minutes Exam Vital Signs Temp Pulse Resp BP Pulse Ox O2 Del Method 97.0 F 67 17 167/79 H 95 Room Air 03/11/25 08:00 03/11/25 08:00 03/11/25 08:00 03/11/25 08:00 03/11/25 08:00 03/11/25 08:00 Narrative Exam Physical Exam General: Awake and in no acute distress. Conversational and non-toxic appearing. HEENT: Normocephalic, atraumatic, extraocular movements intact, pupils equal and reactive to light. Heart: Regular rate and rhythm, no murmurs, rubs or gallops. Lungs: Clear to auscultation with no wheezing or crackles bilaterally. Non-labor ed respirations, symmetric chest rise, no use of accessory muscles. Abdomen: Soft, nondistended, nontender. No guarding or rebound tenderness. Neurologic: Alert and oriented x3, no gross neurological deficit, and patient able to move all 4 extremities. Extremities: No edema, clubbing or cyanosis. Skin: Warm and dry without rashes. Psychiatric: Cooperative, appropriate mood and affect. Discharge Plan Plan Patient Disposition: HOME (Self Care) Care Plan Goals: Follow up with primary care physician within 1 week of discharge. Instructions have been explained to the patient with regards to their medications and how to take them. Patient was able to explain back to physician and nursing staff how to take their medications. Patient expressed understanding with instructions. Continue to take the rest of your medications as prescribed by your primary care physician. Patient has been explained that should any symptoms recur or worsen patient is instructed to return to the Emergency Department. Follow-up outpatient with cardiology for echo, neurology for TIA, and gastroenterology for mild diffuse nonspecific colitis pattern found on imaging. Prescriptions/Referrals Prescriptions/Med Rec: Continued famotidine 40 mg Tablet 40 mg PO QDAY Edita-Nora 0.8 mg Tablet 1 tab PO QDAY escitalopram oxalate [Lexapro] 20 mg Tablet 20 mg PO HS fluticasone propionate 50 mcg/actuation spray,suspension 2 spray INTRANASAL QDAY omeprazole 40 mg capsule,delayed release(DR/EC) 40 mg PO QDAY topiramate 50 mg tablet 50 mg PO Q12H montelukast 10 mg tablet 10 mg PO QDAY rosuvastatin 20 mg tablet 20 mg PO .QHS levocetirizine 5 mg tablet 5 mg PO QDAY Patient Comments: TAKE 1 TABLET BY MOUTH DAILY azelastine 137 mcg (0.1 %) spray,non-aerosol 2 spray INTRANASAL QDAY Patient Comments: SPRAY 2 PUFFS IN EACH NOSTRIL TWICE DAILY aspirin 81 mg tablet,delayed release (DR/EC) 81 mg PO QDAY Patient Comments: TAKE 1 TABLET BY MOUTH DAILY clopidogrel 75 mg tablet 75 mg PO QDAY Referrals: Kavin Courtney MD [Primary Care Provider, Family Practice] Patient/Caregiver Discharge Instructions Discharge Activity: activity as tolerated Education Materials: What Is a TIA?, Discharge Instructions for ... Print Language: Anguillan Stand Alone Forms: [facility]per Award Info., Patient Portal Info Letter, Work/Release Restrictions Discharge Order Discharge Orders: Discharge (Routine); Ordered 03/11/25 Ordered By: Abdullahi Alvarado Quality Discharge Quality Measures VTE prophylaxis
[2025-03-11 12:00] VITALS: BP 151/83; PULSE 59; PULSE 71; RESP 17; TEMP 36.1; O2SAT 95
--- NOTE | 2025-03-11 13:05 | PC.SS ---
Laly Esqueda is a 74 year-old male admitted to [facility] for TIA. SS conducted bedside contact with the patient to complete initial assessment and to discuss discharge planning. Role and reason explained. Patient confirmed demographic information. Patient identifies his Mamie Esqueda [phone] as his surrogate decision maker. Pt states he is able to complete all ADL?s independent. No need for any source of DME. Pt and his are visiting from [place] and plan for a flight back . Pharmacy of choice if needed is [facility]. Discharge options discussed and the pt wishes to return home.? Pt will provide transport. No further intervention required at this time, social worker would be available to address any further concerns. DC Plan: Home Contact: Mamie Address: Confirmed on face sheet PCP: None Here
== END 2025-03-11 13:29 | disposition home or self-care (01) ==
LOC: SERX 06:20 → SERHOLD 13:45 → S3NX 18:07
PROVIDERS: Emergency Medicine; Admitting Provider Internal Medicine; Emergency Provider Emergency Medicine; PCP Family Medicine; Visit Provider Internal Medicine
DX: G45.9 Transient cerebral ischemic attack, unspecified (principal); I25.10 Atherosclerotic heart disease of native coronary artery without angina pectoris; M43.16 Spondylolisthesis, lumbar region; K52.9 Noninfective gastroenteritis and colitis, unspecified; K21.9 Gastro-esophageal reflux disease without esophagitis; G25.81 Restless legs syndrome; R53.1 Weakness; E78.5 Hyperlipidemia, unspecified; F41.9 Anxiety disorder, unspecified
CPT/HCPCS: 36415; 51702; 70450; 70496; 70498; 70553; 71045; 71275; 72131; 74174; 74177; 80053; 80061; 80307; 80320; 81001; 83036; 83735; 83880; 84100; 84439; 84443; 84484; 85025; 85610; 85652; 85730; 86140; 87502; 87635; 93005; 93306; 96360; 96361; 96372; 99291; 99292; A4314; A4649; A9577; G0378; J1644; J3475; J7030; Q9967; A9270; G0480